=== PATIENT | female | born 1960 | race Caucasian/White ===

== ENCOUNTER 2016-09-21 12:36 | Emergency (ER) | payer MEDICARE, MEDICAID ==
[~2016-09-21] VITALS: Ht 162.6 cm; Wt 79.8 kg
[~2016-09-21 12:36] MED LIST: ABIL1TAB7 PO; AMIT24CA5 PO; BUSP15TA47 PO; BUSP1TAB PO; FLUO20CA8 PO; FLUO40CA PO; GEOD40CA2 PO; LACT20EL PO; LEVA500T PO; LISI5TAB PO; LYRI100C10 PO; LYRI75CA PO; MINI1CAP PO; MINI2CAP PO; MIRA3350 PO; MIRA33504 PO; NORT10CA2 PO; OXYB5TA PO; PAME10CA PO; PERC5TAB6 PO; PRIL40CA PO; PROZ20CA11 PO; PROZ40CA PO; TRAZ100T4 PO; ZEST1TAB6 PO; ZIPR60CA11 PO; ZONE100C4 PO; ZONI100C2 PO
[2016-09-21 13:48] LABS: BASO % 0.8 % (0.0-1.0); EOS # 0.2 K/mm3 (0.0-0.50); EOS % 2.2 % (0.0-3.0); LARGE UNSTAINED CELL # 0.1 K/mm3 (0.0-0.4); LARGE UNSTAINED CELL % 1.8 % (0.0-4.0); LYMPH # 2.2 K/mm3 (1.5-4.5); LYMPH % 30.7 % (24.0-44.0); MEAN CORPUSCULAR HEMOGLOBIN 28.4 pg (27.0-33.0); MEAN CORPUSCULAR HGB CONC 32.8 g/dl (32.0-36.5); MEAN CORPUSCULAR VOLUME 86.6 fl (80.0-96.0); MONO # 0.4 K/mm3 (0.0-0.8); MONO % 5.9 % (0.0-5.0); NEUTROPHILS # 3.9 K/mm3 (1.8-7.7); NEUTROPHILS % 58.6 % (36.0-66.0); PLATELET COUNT, AUTOMATED 182 k/mm3 (150-450); RED CELL DISTRIBUTION WIDTH 12.9 % (11.5-14.5); WHITE BLOOD COUNT 6.7 K/mm3 (4.0-10.0)
[2016-09-21 13:55] LABS: INR 1.06
[2016-09-21 14:03] LABS: ANION GAP 6 MEQ/L (8-16); BLOOD UREA NITROGEN 13 MG/DL (7-18); CALCIUM LEVEL 8.9 MG/DL (8.5-10.1); CARBON DIOXIDE LEVEL 28 MEQ/L (21-32); CHLORIDE LEVEL 109 MEQ/L (98-107); CREATININE FOR GFR 0.78 MG/DL (0.55-1.02); GLOMERULAR FILTRATION RATE > 60.0 (>51); GLUCOSE, FASTING 78 MG/DL (70-105); POTASSIUM SERUM 3.6 MEQ/L (3.5-5.1); SODIUM LEVEL 143 MEQ/L (136-145)
--- NOTE | 2016-09-21 14:18 | REP ---
CT STUDY OF THE BRAIN WITHOUT CONTRAST: HISTORY: Syncope. Comparison study October 23, 2013. 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 Bone window settings demonstrate an intact bony calvarium. Visualized paranasal sinuses are clear. The lateral, third, and fourth ventricles are normal in size and position. Stapleton-white differentiation pattern is normal above and below the tentorium. There is no evidence of intracranial hemorrhage. No extra-axial fluid collection is seen. There is no evidence of infarct mass or midline shift. IMPRESSION: Unremarkable noncontrast head CT. No acute intracranial lesion. Signed by Tommie Dang MD 09/21/2016 02:37 P
[2016-09-21 14:35] LABS: METHADONE URINE NEGATIVE (NEGATIVE)
[2016-09-21] MEDS ORDERED: KETOROLAC 30 MG/ML VIAL (J1885) IV ONE (15:15)
[2016-09-21 15:52] VITALS: BP 126/71
--- NOTE | 2016-09-22 12:29 | ECGEPIP ---
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
== END 2016-09-21 16:02 | disposition home or self-care (01) ==
LOC: EDBD 12:36 → M ED 14:22
DX: R55 Syncope and collapse (principal); S80.211A Abrasion, right knee, initial encounter; S00.11XA Contusion of right eyelid and periocular area, initial encounter; W19.XXXA Unspecified fall, initial encounter; Y92.89 Other specified places as the place of occurrence of the external cause; Y93.89 Activity, other specified; Y99.8 Other external cause status; J45.909 Unspecified asthma, uncomplicated; I10 Essential (primary) hypertension; G47.30 Sleep apnea, unspecified; R56.9 Unspecified convulsions; Z87.442 Personal history of urinary calculi; Z87.440 Personal history of urinary (tract) infections; M41.9 Scoliosis, unspecified; F41.9 Anxiety disorder, unspecified; F33.9 Major depressive disorder, recurrent, unspecified; Z79.899 Other long term (current) drug therapy; Z91.018 Allergy to other foods; Z88.2 Allergy status to sulfonamides; Z88.8 Allergy status to other drugs, medicaments and biological substances
CPT/HCPCS: 70450; 80048; 80306; 81001; 82550; 82553; 84443; 84484; 85025; 85610; 85730; 87086; 93005; 96374; 99283; G0463; J1885

== ENCOUNTER → 2016-10-28 | Outpatient (REF) | payer MEDICARE, MEDICAID | LOC: M SFHCCLAY 16:17 | PROVIDERS: ATTEND Family Medicine | DX: R30.0 Dysuria (principal) ==

== ENCOUNTER → 2017-05-12 | Outpatient (REF) | payer MEDICARE, MEDICAID ==
[~2017-05-12] MED LIST changes: -ABIL1TAB7 PO; +ABIL20TA5 PO; -AMIT24CA5 PO; +AMIT24CA7 PO; +LEVA1TAB2 PO; -LEVA500T PO; -LYRI100C10 PO; -OXYB5TA PO; +OXYB5TAB10 PO; +PERC5TAB12 PO; -PERC5TAB6 PO; +PREG100CA PO; +TRAZ-136 PO; -TRAZ100T4 PO; -ZONE100C4 PO; +ZONE1CAP PO
[2017-05-12 19:18] LABS: FOLATE 22.7 NG/ML (>5.4); VITAMIN B12 LEVEL 770 PG/ML (247-911)
[2017-05-12 19:27] LABS: ALBUMIN/GLOBULIN RATIO 1.25 (1.00-1.93); ALKALINE PHOSPHATASE 108 U/L (45-117); ALT/SGPT 38 U/L (12-78); ANION GAP 7 MEQ/L (8-16); AST/SGOT 29 U/L (7-37); BILIRUBIN,TOTAL 0.4 MG/DL (0.2-1.0); BLOOD UREA NITROGEN 9 MG/DL (7-18); CALCIUM LEVEL 9.2 MG/DL (8.5-10.1); CARBON DIOXIDE LEVEL 29 MEQ/L (21-32); CHLORIDE LEVEL 109 MEQ/L (98-107); CHOLESTEROL LEVEL 184 MG/DL (<200); CREATININE FOR GFR 0.91 MG/DL (0.55-1.02); GLOMERULAR FILTRATION RATE > 60.0 (>51); GLUCOSE, FASTING 85 MG/DL (70-105); SODIUM LEVEL 145 MEQ/L (136-145); THYROXINE (T4) 10.8 UG/DL (4.5-12.0); TOTAL PROTEIN 7.2 GM/DL (6.4-8.2); TRIGLYCERIDES LEVEL 75 MG/DL (<150)
== END ==
LOC: M SFHCCLAY 10:44
PROVIDERS: ATTEND Family Medicine
DX: E87.6 Hypokalemia (principal); E78.2 Mixed hyperlipidemia; R73.01 Impaired fasting glucose; R53.83 Other fatigue; R40.4 Transient alteration of awareness; R20.2 Paresthesia of skin; Z13.21 Encounter for screening for nutritional disorder; R20.0 Anesthesia of skin
CPT/HCPCS: 80053; 80061; 82607; 82652; 82746; 83036; 84436; 84443; G0463

== ENCOUNTER → 2017-06-30 | Outpatient (CLI) | payer MEDICARE | LOC: M PAIN 09:30 | DX: G89.29 Other chronic pain (principal); M50.122 Cervical disc disorder at C5-C6 level with radiculopathy; M50.123 Cervical disc disorder at C6-C7 level with radiculopathy; M54.5 Low back pain; M79.1 Myalgia; R56.9 Unspecified convulsions; G43.909 Migraine, unspecified, not intractable, without status migrainosus; G47.30 Sleep apnea, unspecified; F32.9 Major depressive disorder, single episode, unspecified; F41.9 Anxiety disorder, unspecified; Z79.82 Long term (current) use of aspirin; Z79.899 Other long term (current) drug therapy; Z88.1 Allergy status to other antibiotic agents | CPT/HCPCS: G0463 ==

== ENCOUNTER → 2017-08-18 | Outpatient (REF) | payer MEDICARE ==
[2017-08-18 16:33] LABS: BASO % 0.7 % (0.0-1.0); EOS # 0.1 10^3/uL (0.0-0.50); EOS % 1.2 % (0.0-3.0); HEMATOCRIT 38.5 % (36.0-47.0); HEMOGLOBIN 12.6 g/dl (12.0-16.0); IMMATURE GRANULOCYTE % 0.2 % (0-3.0); LYMPH # 1.7 10^3/uL (1.5-4.5); LYMPH % 28.4 % (24.0-44.0); MEAN CORPUSCULAR HEMOGLOBIN 27.5 pg (27.0-33.0); MEAN CORPUSCULAR HGB CONC 32.7 g/dl (32.0-36.5); MEAN CORPUSCULAR VOLUME 84.1 fl (80.0-96.0); MONO # 0.3 10^3/uL (0.0-0.8); MONO % 5.2 % (0.0-5.0); NEUTROPHILS # 3.8 10^3/uL (1.8-7.7); NEUTROPHILS % 64.3 % (36.0-66.0); PLATELET COUNT, AUTOMATED 201 10^3/uL (150-450); RED BLOOD COUNT 4.58 10^6/uL (4.00-5.40); RED CELL DISTRIBUTION WIDTH 14.2 % (11.5-14.5); WHITE BLOOD COUNT 5.9 10^3/uL (4.0-10.0)
[2017-08-18 17:03] LABS: ALBUMIN 3.7 GM/DL (3.2-5.2); ALBUMIN/GLOBULIN RATIO 1.23 (1.00-1.93); ALKALINE PHOSPHATASE 109 U/L (45-117); ALT/SGPT 40 U/L (12-78); AMYLASE 48 U/L (25-115); ANION GAP 5 MEQ/L (8-16); AST/SGOT 35 U/L (7-37); BILIRUBIN,TOTAL 0.6 MG/DL (0.2-1.0); BLOOD UREA NITROGEN 10 MG/DL (7-18); CALCIUM LEVEL 8.9 MG/DL (8.5-10.1); CARBON DIOXIDE LEVEL 28 MEQ/L (21-32); CHLORIDE LEVEL 110 MEQ/L (98-107); CREATININE FOR GFR 0.89 MG/DL (0.55-1.30); GLOMERULAR FILTRATION RATE > 60.0 (>51); GLUCOSE, FASTING 85 MG/DL (70-100); LIPASE 175 U/L (73-393); SODIUM LEVEL 143 MEQ/L (136-145); TOTAL PROTEIN 6.7 GM/DL (6.4-8.2)
[2017-08-21 12:24] LABS: HEPATITIS B SURFACE ANTIGEN NEGATIVE (NEGATIVE)
[2017-08-21 12:50] LABS: HEPATITIS C VIRUS ABY INDEX 0.1 INDEX (<0.8)
[2017-08-21 12:51] LABS: HEPATITIS B CORE ANTIBODY IGM NEGATIVE (NEGATIVE)
[2017-08-21 12:53] LABS: HEPATITIS A ANTIBODY IGM NEGATIVE (NEGATIVE)
== END ==
LOC: M SFHCCLAY 09:30
DX: R10.84 Generalized abdominal pain (principal)
CPT/HCPCS: 82150

== ENCOUNTER 2017-10-23 01:12 | Emergency (ER) | payer MEDICARE ==
[2017-10-23 01:51] LABS: BASO # 0.1 10^3/uL (0.0-0.2); BASO % 0.5 % (0.0-1.0); EOS # 0.1 10^3/uL (0.0-0.50); HEMATOCRIT 38.7 % (36.0-47.0); HEMOGLOBIN 13.2 g/dl (12.0-15.5); IMMATURE GRANULOCYTE % 0.3 % (0-3.0); LYMPH # 2.2 10^3/uL (1.5-4.5); LYMPH % 17.9 % (24.0-44.0); MEAN CORPUSCULAR HEMOGLOBIN 28.7 pg (27.0-33.0); MEAN CORPUSCULAR HGB CONC 34.1 g/dl (32.0-36.5); MEAN CORPUSCULAR VOLUME 84.1 fl (80.0-96.0); MONO # 0.6 10^3/uL (0.0-0.8); MONO % 4.9 % (0.0-5.0); NEUTROPHILS # 9.3 10^3/uL (1.8-7.7); NEUTROPHILS % 75.4 % (36.0-66.0); PLATELET COUNT, AUTOMATED 203 10^3/uL (150-450); RED CELL DISTRIBUTION WIDTH 13.4 % (11.5-14.5); WHITE BLOOD COUNT 12.3 10^3/uL (4.0-10.0)
[2017-10-23] MEDS: NS 500 ML IV (01:57)
[2017-10-23] MEDS: METOCLOPRAMIDE INJ 10MG/2ML VIAL (J2765) IV (02:03)
[2017-10-23 02:10] LABS: ALBUMIN 3.7 GM/DL (3.2-5.2); ALBUMIN/GLOBULIN RATIO 1.03 (1.00-1.93); ALKALINE PHOSPHATASE 105 U/L (45-117); ALT/SGPT 40 U/L (12-78); ANION GAP 9 MEQ/L (8-16); AST/SGOT 36 U/L (7-37); BILIRUBIN,DIRECT 0.2 MG/DL (0.0-0.2); BILIRUBIN,TOTAL 0.4 MG/DL (0.2-1.0); BLOOD UREA NITROGEN 17 MG/DL (7-18); CALCIUM LEVEL 9.4 MG/DL (8.5-10.1); CARBON DIOXIDE LEVEL 22 MEQ/L (21-32); CHLORIDE LEVEL 110 MEQ/L (98-107); CREATININE FOR GFR 1.07 MG/DL (0.55-1.30); GLOMERULAR FILTRATION RATE 56.7 (>51); GLUCOSE, FASTING 139 MG/DL (70-100); LIPASE 182 U/L (73-393); POTASSIUM SERUM 4.2 MEQ/L (3.5-5.1); SODIUM LEVEL 141 MEQ/L (136-145); TOTAL PROTEIN 7.3 GM/DL (6.4-8.2)
[2017-10-23 02:40] LABS: AMORPHOUS SEDIMENT SMALL (NEGATIVE); APPEARANCE, URINE CLOUDY (CLEAR); BACTERIA, URINE AUTO NEGATIVE (NEGATIVE); BILIRUBIN, URINE AUTO NEGATIVE (NEGATIVE); BLOOD, URINE BLOOD 1+ (NEGATIVE); COLOR, URINE YELLOW (YELLOW); GLUCOSE, URINE (UA) AUTO NEGATIVE (NEGATIVE); KETONE, URINE AUTO NEGATIVE (NEGATIVE); LEUKOCYTE ESTERASE, URINE AUTO 2+ (NEGATIVE); MUCUS, URINE SMALL (NEGATIVE); NITRITE, URINE AUTO NEGATIVE (NEGATIVE); PROTEIN, URINE AUTO NEGATIVE (NEGATIVE); RBC, URINE AUTO 25 /HPF (0-3); SPECIFIC GRAVITY URINE AUTO 1.009 (1.002-1.035); SQUAMOUS EPITHELIAL CELL UR AU 0 /HPF (0-6); UROBILINOGEN, URINE AUTO 0.2 mg/dL (0.0-2.0); WBC, URINE AUTO 7 /HPF (0-3)
[2017-10-23] MEDS: KETOROLAC 30 MG/ML VIAL (J1885) IV (02:50)
[2017-10-23] MEDS: MORPHINE 4 MG/ML 1ML VIAL/SYRINGE (J2270) IV ×3 (02:51→05:00)
[2017-10-23] MEDS: NS 1,000 ML IV (04:30)
[2017-10-23] MEDS: TAMSULOSIN 0.4 MG CAP PO (04:33)
[2017-10-23] MEDS ORDERED: MORPHINE 10 MG/ML 1ML VIAL (J2270) IV (05:15)
[2017-10-23] MEDS: NORCO 5/325MG TABLET (BULK FOR ED) PO (05:25)
== END 2017-10-23 05:34 | disposition home or self-care (01) ==
LOC: M ED 01:12
DX: N20.1 Calculus of ureter (principal); F32.9 Major depressive disorder, single episode, unspecified; Z87.442 Personal history of urinary calculi; Z79.899 Other long term (current) drug therapy; Z88.1 Allergy status to other antibiotic agents; Z91.018 Allergy to other foods
CPT/HCPCS: J2270

== ENCOUNTER → 2017-10-24 | Outpatient (CLI) | payer MEDICARE | LOC: M SMT 14:14 | DX: N13.2 Hydronephrosis with renal and ureteral calculous obstruction (principal); Z98.890 Other specified postprocedural states; M41.9 Scoliosis, unspecified | CPT/HCPCS: 71046; G0463 ==

== ENCOUNTER 2017-10-28 21:07 | Inpatient (IN) | payer MEDICARE ==
[2017-10-28 21:36] LABS: KETONE, URINE AUTO RFX NEGATIVE (NEGATIVE); NITRITE, URINE AUTO RFX NEGATIVE (NEGATIVE); RBC, URINE AUTO RFX 3 /HPF (0-3); SPECIFIC GRAVITY UR AUTO RFX 1.005 (1.002-1.035); SQUAM EPITHELIAL CELL UR AURFX 0 /HPF (0-6); WBC, URINE AUTO RFX 3 /HPF (0-3)
[2017-10-28 21:39] LABS: LEUKOCYTE ESTERASE UR AUTO RFX 1+ (NEGATIVE)
[2017-10-28] MEDS: NS 1,000 ML IV (22:00)
[2017-10-28] MEDS: ONDANSETRON 4MG/2ML VIAL (J2405) IV (22:22)
[2017-10-28] MEDS: KETOROLAC 30 MG/ML VIAL (J1885) IV (22:23)
[2017-10-28 22:26] LABS: BASO # 0.1 10^3/uL (0.0-0.2); BASO % 0.5 % (0.0-1.0); EOS # 0.1 10^3/uL (0.0-0.50); EOS % 0.8 % (0.0-3.0); HEMOGLOBIN 13.2 g/dl (12.0-15.5); IMMATURE GRANULOCYTE % 0.3 % (0-3.0); LYMPH # 1.6 10^3/uL (1.5-4.5); LYMPH % 13.1 % (24.0-44.0); MEAN CORPUSCULAR HEMOGLOBIN 28.4 pg (27.0-33.0); MEAN CORPUSCULAR HGB CONC 33.8 g/dl (32.0-36.5); MEAN CORPUSCULAR VOLUME 84.1 fl (80.0-96.0); MONO # 0.8 10^3/uL (0.0-0.8); MONO % 6.9 % (0.0-5.0); NEUTROPHILS # 9.4 10^3/uL (1.8-7.7); NEUTROPHILS % 78.4 % (36.0-66.0); PLATELET COUNT, AUTOMATED 244 10^3/uL (150-450); RED BLOOD COUNT 4.64 10^6/uL (4.00-5.40)
[2017-10-28 22:52] LABS: ANION GAP 8 MEQ/L (8-16); BLOOD UREA NITROGEN 16 MG/DL (7-18); CALCIUM LEVEL 8.8 MG/DL (8.5-10.1); CARBON DIOXIDE LEVEL 24 MEQ/L (21-32); CHLORIDE LEVEL 106 MEQ/L (98-107); CREATININE FOR GFR 1.35 MG/DL (0.55-1.30); GLOMERULAR FILTRATION RATE 43.3 (>51); GLUCOSE, FASTING 109 MG/DL (70-100); POTASSIUM SERUM 3.9 MEQ/L (3.5-5.1); SODIUM LEVEL 138 MEQ/L (136-145)
[2017-10-28] MEDS: MORPHINE 4 MG/ML 1ML VIAL/SYRINGE (J2270) IV (23:00)
[2017-10-29] MEDS ORDERED: fentaNYL 100 MCG/2 ML INJECTION (J3010) IV (00:15)
[2017-10-29] MEDS ORDERED: ACETAMINOPHEN TAB 650MG DOSE (2X325MG) PO (00:15)
[2017-10-29] MEDS ORDERED: ONDANSETRON 4MG/2ML VIAL (J2405) IV ×2 (00:15→12:45)
[2017-10-29] MEDS: MORPHINE 4 MG/ML 1ML VIAL/SYRINGE (J2270) IV (01:22)
[2017-10-29] MEDS: cefTRIAXone SOD 1 GM in D5W MINI-BAG PLUS 50 ML IV ×2 (01:22→23:55)
[2017-10-29] MEDS: TAMSULOSIN 0.4 MG CAP PO ×2 (01:22→08:08)
[2017-10-29] MEDS: NS 1,000 ML IV ×3 (02:22→17:54)
[2017-10-29] MEDS: PERCOCET 5MG/325MG TAB PO ×3 (04:14→23:56)
[2017-10-29] MEDS: HEPARIN SOD (PORCINE) 5000 UNITS/ML VIAL SC ×3 (06:00→20:54)
[2017-10-29] MEDS: MORPHINE 10 MG/ML 1ML VIAL (J2270) IV ×2 (06:21→15:43)
[2017-10-29] MEDS ORDERED: CONRAY-60 60% 50ML VIAL (Q9961) As Ordered (10:45)
[2017-10-29] MEDS ORDERED: fentaNYL 100 MCG/2 ML INJECTION (J3010) As Ordered ×2 (11:51→12:09)
[2017-10-29] MEDS ORDERED: SUGAMMADEX SODIUM 500 MG/5 ML VIAL (BRIDION) As Ordered (11:51)
[2017-10-29] MEDS ORDERED: ROCURONIUM BROMIDE 50 MG/5 ML VIAL As Ordered (11:51)
[2017-10-29] MEDS ORDERED: PROPOFOL 200 MG/20 ML VIAL As Ordered (11:51)
[2017-10-29] MEDS ORDERED: MIDAZOLAM INJ 2 MG/2 ML VIAL (J2250) As Ordered (11:51)
[2017-10-29] MEDS ORDERED: LIDOCAINE 2% INJ 100 MG/5 ML SDV (FOR ANES.) As Ordered (11:51)
[2017-10-29] MEDS ORDERED: NORCO, ANEXSIA 5/325MG TABLET (HYDROcodone/ACETAMINOPHEN) As Ordered ×2 (12:09→12:44)
[2017-10-29] MEDS ORDERED: ONDANSETRON 4MG/2ML VIAL (J2405) As Ordered (12:12)
[2017-10-29] MEDS: NORCO, ANEXSIA 5/325MG TABLET (HYDROcodone/ACETAMINOPHEN) PO ×2 (12:20→12:52)
[2017-10-29] MEDS: fentaNYL 100 MCG/2 ML INJECTION (J3010) IV ×4 (12:20→12:40)
[2017-10-29] MEDS: METOCLOPRAMIDE INJ 10MG/2ML VIAL (J2765) IV (12:20)
[2017-10-29] MEDS ORDERED: METOCLOPRAMIDE INJ 10MG/2ML VIAL (J2765) As Ordered (12:30)
[2017-10-29] MEDS ORDERED: LR 1,000 ML IV (12:45)
[2017-10-29] MEDS: FLUoxetine 20 MG CAP PO (17:59)
[2017-10-29] MEDS: ZONISAMIDE 100 MG CAP (ZONEGRAN) PO ×3 (20:45→21:00)
[2017-10-29] MEDS: busPIRone 10 MG TAB PO (20:54)
[2017-10-29] MEDS: PRAZOSIN 1 MG CAP PO (21:00)
[2017-10-30] MEDS: NS 1,000 ML IV (04:47)
[2017-10-30] MEDS: PERCOCET 5MG/325MG TAB PO (04:53)
[2017-10-30] MEDS: HEPARIN SOD (PORCINE) 5000 UNITS/ML VIAL SC (04:55)
[2017-10-30 07:18] LABS: BASO # 0.1 10^3/uL (0.0-0.2); EOS # 0.2 10^3/uL (0.0-0.50); EOS % 4.3 % (0.0-3.0); HEMATOCRIT 33.5 % (36.0-47.0); IMMATURE GRANULOCYTE % 0.4 % (0-3.0); LYMPH % 40.9 % (24.0-44.0); MEAN CORPUSCULAR HEMOGLOBIN 28.6 pg (27.0-33.0); MEAN CORPUSCULAR HGB CONC 32.8 g/dl (32.0-36.5); MONO # 0.3 10^3/uL (0.0-0.8); MONO % 6.1 % (0.0-5.0); NEUTROPHILS # 2.3 10^3/uL (1.8-7.7); NEUTROPHILS % 47.3 % (36.0-66.0); PLATELET COUNT, AUTOMATED 176 10^3/uL (150-450); RED BLOOD COUNT 3.85 10^6/uL (4.00-5.40); RED CELL DISTRIBUTION WIDTH 13.6 % (11.5-14.5); WHITE BLOOD COUNT 4.9 10^3/uL (4.0-10.0)
[2017-10-30 07:32] LABS: ANION GAP 5 MEQ/L (8-16); BLOOD UREA NITROGEN 12 MG/DL (7-18); CALCIUM LEVEL 8.6 MG/DL (8.5-10.1); CARBON DIOXIDE LEVEL 26 MEQ/L (21-32); CHLORIDE LEVEL 111 MEQ/L (98-107); CREATININE FOR GFR 0.99 MG/DL (0.55-1.30); GLOMERULAR FILTRATION RATE > 60.0 (>51); GLUCOSE, FASTING 83 MG/DL (70-100); POTASSIUM SERUM 3.6 MEQ/L (3.5-5.1); SODIUM LEVEL 142 MEQ/L (136-145)
[2017-10-30] MEDS: busPIRone 10 MG TAB PO (08:15)
[2017-10-30] MEDS: ZONISAMIDE 100 MG CAP (ZONEGRAN) PO (08:15)
[2017-10-30] MEDS: FLUoxetine 20 MG CAP PO (08:15)
== END 2017-10-30 10:50 | disposition home or self-care (01) | DRG 669 ==
LOC: M ED INP 10-29 00:11 → M PED 10-29 02:00 → M ED 21:07
PROC: 0TC68ZZ Extirpation of Matter from Right Ureter, Via Natural or Artificial Opening Endoscopic (ICD-10-PCS; principal; 2017-10-29 11:00)
DX: N13.2 Hydronephrosis with renal and ureteral calculous obstruction (principal); F41.9 Anxiety disorder, unspecified; F32.9 Major depressive disorder, single episode, unspecified; Z79.899 Other long term (current) drug therapy; Z88.2 Allergy status to sulfonamides; Z91.018 Allergy to other foods; Z86.73 Personal history of transient ischemic attack (TIA), and cerebral infarction without residual deficits; Z88.8 Allergy status to other drugs, medicaments and biological substances; G40.909 Epilepsy, unspecified, not intractable, without status epilepticus; G43.909 Migraine, unspecified, not intractable, without status migrainosus; G47.30 Sleep apnea, unspecified; I25.10 Atherosclerotic heart disease of native coronary artery without angina pectoris

== ENCOUNTER 2017-11-02 07:27 | Day surgery (SDC) | payer MEDICARE ==
[2017-11-02] MEDS: LR 1,000 ML IV (08:35)
[2017-11-02] MEDS ORDERED: fentaNYL 100 MCG/2 ML INJECTION (J3010) As Ordered (09:22)
[2017-11-02] MEDS ORDERED: MIDAZOLAM INJ 2 MG/2 ML VIAL (J2250) As Ordered (09:22)
[2017-11-02] MEDS ORDERED: LIDOCAINE 2% INJ 100 MG/5 ML SDV (FOR ANES.) As Ordered (09:22)
[2017-11-02] MEDS ORDERED: PROPOFOL 200 MG/20 ML VIAL As Ordered (09:22)
[2017-11-02] MEDS ORDERED: ePHEDrine SULFATE 25 MG/5 ML(5MG/ML) SYRINGE As Ordered (09:26)
== END 2017-11-02 11:20 | disposition home or self-care (01) ==
LOC: M SDC 07:27
DX: N20.0 Calculus of kidney (principal); J45.909 Unspecified asthma, uncomplicated; K21.9 Gastro-esophageal reflux disease without esophagitis; G47.30 Sleep apnea, unspecified; F41.9 Anxiety disorder, unspecified; F32.9 Major depressive disorder, single episode, unspecified; Z79.899 Other long term (current) drug therapy
CPT/HCPCS: 50590

== ENCOUNTER → 2017-11-23 | Outpatient (CLI) | payer MEDICARE ==
[2017-11-23 14:04] LABS: AMORPHOUS SEDIMENT SMALL (NEGATIVE); APPEARANCE, URINE CLOUDY (CLEAR); BACTERIA, URINE AUTO 1+ (NEGATIVE); BILIRUBIN, URINE AUTO NEGATIVE (NEGATIVE); BLOOD, URINE BLOOD 3+ (NEGATIVE); CALCIUM OXALATE CRYSTALS SMALL; COLOR, URINE YELLOW (YELLOW); GLUCOSE, URINE (UA) AUTO NEGATIVE (NEGATIVE); KETONE, URINE AUTO NEGATIVE (NEGATIVE); LEUKOCYTE ESTERASE, URINE AUTO 3+ (NEGATIVE); MUCUS, URINE SMALL (NEGATIVE); NITRITE, URINE AUTO NEGATIVE (NEGATIVE); PROTEIN, URINE AUTO 2+ mg/dL (NEGATIVE); RBC, URINE AUTO TNTC /HPF (0-3); SPECIFIC GRAVITY URINE AUTO 1.012 (1.002-1.035); SQUAMOUS EPITHELIAL CELL UR AU 1 /HPF (0-6); UROBILINOGEN, URINE AUTO 0.2 mg/dL (0.0-2.0); WBC, URINE AUTO 15 /HPF (0-3)
== END ==
LOC: M SMT 09:16
DX: N20.0 Calculus of kidney (principal); Z96.0 Presence of urogenital implants
CPT/HCPCS: 81001

== ENCOUNTER → 2017-11-28 | Outpatient (REF) | payer MEDICARE ==
[2017-11-28 17:18] LABS: APPEARANCE, URINE CLOUDY (CLEAR); BACTERIA, URINE AUTO 2+ (NEGATIVE); BILIRUBIN, URINE AUTO NEGATIVE (NEGATIVE); BLOOD, URINE BLOOD 3+ (NEGATIVE); CALCIUM OXALATE CRYSTALS MODERATE; COLOR, URINE YELLOW (YELLOW); GLUCOSE, URINE (UA) AUTO NEGATIVE (NEGATIVE); KETONE, URINE AUTO NEGATIVE (NEGATIVE); LEUKOCYTE ESTERASE, URINE AUTO 2+ (NEGATIVE); MUCUS, URINE SMALL (NEGATIVE); NITRITE, URINE AUTO NEGATIVE (NEGATIVE); PROTEIN, URINE AUTO 2+ mg/dL (NEGATIVE); RBC, URINE AUTO TNTC /HPF (0-3); SPECIFIC GRAVITY URINE AUTO 1.018 (1.002-1.035); SQUAMOUS EPITHELIAL CELL UR AU 1 /HPF (0-6); UROBILINOGEN, URINE AUTO 0.2 mg/dL (0.0-2.0); WBC, URINE AUTO 58 /HPF (0-3)
== END ==
LOC: M LABSMT 12:19 → M LABDRAWC 12:25
DX: N39.0 Urinary tract infection, site not specified (principal)
CPT/HCPCS: 81001

== ENCOUNTER → 2018-06-27 | Outpatient (REF) | payer MEDICARE ==
[~2018-06-27] MED LIST changes: +ASPI1TAB PO; +BUSP30TA PO; +FLOM0.4C39 PO; +GEOD40CA13 PO; -GEOD40CA2 PO; +MACR100C43 PO; +MAGN1TAB25 PO; +OXYC1TAB23 PO; +OXYCOD/APAP; +PRAZ2CAP PO; +PROZ40CA; +SUMA50TA2; +TAMSULOSIN; -TRAZ-136 PO; +TRAZ-163 PO; +VITMTA PO
[2018-06-27 18:12] LABS: BASO # 0.1 10^3/uL (0.0-0.2); EOS # 0.1 10^3/uL (0.0-0.50); EOS % 1.9 % (0.0-3.0); HEMOGLOBIN 12.7 g/dl (12.0-15.5); LYMPH # 2.3 10^3/uL (1.5-4.5); LYMPH % 33.7 % (24.0-44.0); MEAN CORPUSCULAR HEMOGLOBIN 27.8 pg (27.0-33.0); MEAN CORPUSCULAR HGB CONC 31.8 g/dl (32.0-36.5); MEAN CORPUSCULAR VOLUME 87.5 fl (80.0-96.0); MONO # 0.5 10^3/uL (0.0-0.8); MONO % 6.7 % (0.0-5.0); NEUTROPHILS # 3.9 10^3/uL (1.8-7.7); NEUTROPHILS % 56.6 % (36.0-66.0); PLATELET COUNT, AUTOMATED 210 10^3/uL (150-450); RED BLOOD COUNT 4.57 10^6/uL (4.00-5.40); WHITE BLOOD COUNT 6.9 10^3/uL (4.0-10.0)
[2018-06-27 18:21] LABS: ALBUMIN 3.7 GM/DL (3.2-5.2); ALT/SGPT 41 U/L (12-78); BILIRUBIN,DIRECT 0.1 MG/DL (0.0-0.2); BILIRUBIN,TOTAL 0.4 MG/DL (0.2-1.0); BLOOD UREA NITROGEN 16 MG/DL (7-18); CARBON DIOXIDE LEVEL 26 MEQ/L (21-32); CHLORIDE LEVEL 109 MEQ/L (98-107); CREATININE FOR GFR 0.99 MG/DL (0.55-1.30); FREE T4 0.99 NG/DL (0.76-1.46); GLOMERULAR FILTRATION RATE > 60.0 (>51); POTASSIUM SERUM 4.1 MEQ/L (3.5-5.1); SODIUM LEVEL 142 MEQ/L (136-145); THYROID STIMULATING HORMONE 0.862 uIU/ML (0.358-3.740)
[2018-06-27 18:24] LABS: FOLATE 15.3 NG/ML; VITAMIN B12 LEVEL 795 PG/ML
[2018-07-03 15:26] LABS: HOMOCYST(E)INE SERUM 11.3 umol/L (0.0-15.0)
== END ==
LOC: M LABDRAWC 16:04
PROVIDERS: ATTEND Psychiatry & Neurology Neurology
DX: R55 Syncope and collapse (principal); R20.2 Paresthesia of skin; G40.89 Other seizures

== ENCOUNTER → 2018-07-24 | Outpatient (CLI) | payer MEDICARE ==
[~2018-07-24] MED LIST changes: +PROHANCE 279.3MG/ML 15ML VIAL (A9576) As Ordered ONE; +PROHANCE 279.3MG/ML 5ML VIAL (A9576) As Ordered ONE
--- NOTE | 2018-07-24 15:56 | REP ---
MR BRAIN WITHOUT AND WITH CONTRAST: HISTORY: Syncope. CONTRAST: ProHance 16 mL. COMPARISON: CT 10/23/2013. Scattered punctate areas of increased signal intensity on T2-weighted images are present in the periventricular and subcortical white matter and marky. This presents small vessel ischemic disease. There is no intraparenchymal hemorrhage, infarct, mass or midline shift. There is no abnormal enhancement. The ventricular system and cortical sulci are dilated consistent with minimal volume loss. There is no extracerebral collection. The sinuses are clear. IMPRESSION: 1. Minimal small vessel ischemic disease. 2. Minimal volume loss. Electronically Signed by Sanket Nathan MD 07/24/2018 04:02 P
== END ==
LOC: M RAD 14:11
PROVIDERS: ATTEND Psychiatry & Neurology Neurology
DX: R55 Syncope and collapse (principal); R20.2 Paresthesia of skin; G40.89 Other seizures
CPT/HCPCS: 70553; A9576

== ENCOUNTER → 2018-09-11 | Outpatient (REF) | payer MEDICARE ==
[~2018-09-11] MED LIST changes: +LACT15SO PO; -LACT20EL PO; -PROHANCE 279.3MG/ML 15ML VIAL (A9576) As Ordered ONE; -PROHANCE 279.3MG/ML 5ML VIAL (A9576) As Ordered ONE
[2018-09-11 12:41] LABS: CHOLESTEROL RISK RATIO 3.73 (<5)
== END ==
LOC: M LABDRAWC 11:17
PROVIDERS: ATTEND Internal Medicine Cardiovascular Disease
DX: R94.31 Abnormal electrocardiogram [ECG] [EKG] (principal); I35.1 Nonrheumatic aortic (valve) insufficiency

== ENCOUNTER → 2019-01-28 | Outpatient (REF) | payer MEDICARE ==
[~2019-01-28] MED LIST changes: -ASPI1TAB PO; +ASPI81TA26 PO; -MAGN1TAB25 PO; +MAGN1TAB26 PO
[2019-01-28 12:23] LABS: ALBUMIN 3.6 GM/DL (3.2-5.2); ALT/SGPT 42 U/L (12-78); BILIRUBIN,TOTAL 0.6 MG/DL (0.2-1.0); BLOOD UREA NITROGEN 12 MG/DL (7-18); CALCIUM LEVEL 8.9 MG/DL (8.5-10.1); CARBON DIOXIDE LEVEL 27 MEQ/L (21-32); CHLORIDE LEVEL 108 MEQ/L (98-107); CREATININE FOR GFR 0.96 MG/DL (0.55-1.30); GLOMERULAR FILTRATION RATE > 60.0 (>51); GLUCOSE, FASTING 84 MG/DL (70-100); POTASSIUM SERUM 3.4 MEQ/L (3.5-5.1); SODIUM LEVEL 143 MEQ/L (136-145); THYROID STIMULATING HORMONE 0.872 uIU/ML (0.358-3.740); THYROXINE (T4) 9.5 UG/DL (4.5-12.0); TOTAL PROTEIN 6.7 GM/DL (6.4-8.2); TOTAL T3 109.8 NG/DL (60.0-181.0)
[2019-01-30 00:06] LABS: Lyme Disease IgG/IgM Antibodie <0.91 ISR (0.00-0.90); Lyme Disease IgM Ab Quantitati <0.80 index (0.00-0.79)
== END ==
LOC: M SFHCCLAY 07:54
PROVIDERS: ATTEND Family Medicine
DX: R53.83 Other fatigue (principal); M25.50 Pain in unspecified joint

== ENCOUNTER → 2019-04-15 | Outpatient (REF) | payer MEDICARE ==
[2019-04-16 11:26] LABS: APPEARANCE, URINE CLOUDY (CLEAR); BACTERIA, URINE AUTO NEGATIVE (NEGATIVE); BILIRUBIN, URINE AUTO NEGATIVE (NEGATIVE); BLOOD, URINE BLOOD 3+ (NEGATIVE); COLOR, URINE YELLOW (YELLOW); GLUCOSE, URINE (UA) AUTO NEGATIVE (NEGATIVE); KETONE, URINE AUTO NEGATIVE (NEGATIVE); LEUKOCYTE ESTERASE, URINE AUTO 1+ (NEGATIVE); MUCUS, URINE SMALL (NEGATIVE); NITRITE, URINE AUTO NEGATIVE (NEGATIVE); PROTEIN, URINE AUTO 2+ mg/dL (NEGATIVE); RBC, URINE AUTO TNTC /HPF (0-3); SPECIFIC GRAVITY URINE AUTO 1.019 (1.002-1.035); SQUAMOUS EPITHELIAL CELL UR AU 0 /HPF (0-6); UROBILINOGEN, URINE AUTO 0.2 mg/dL (0.0-2.0); WBC, URINE AUTO 4 /HPF (0-3)
== END ==
LOC: M SMT 11:08
PROVIDERS: ATTEND Urology
DX: R31.9 Hematuria, unspecified (principal)

== ENCOUNTER → 2019-04-18 | Outpatient (CLI) | payer MEDICARE ==
[2019-04-18 13:53] LABS: BLOOD UREA NITROGEN 14 MG/DL (7-18); CALCIUM LEVEL 9.2 MG/DL (8.5-10.1); CARBON DIOXIDE LEVEL 28 MEQ/L (21-32); CHLORIDE LEVEL 109 MEQ/L (98-107); CREATININE FOR GFR 0.88 MG/DL (0.55-1.30); GLOMERULAR FILTRATION RATE > 60.0 (>51); GLUCOSE, FASTING 59 MG/DL (70-100); SODIUM LEVEL 142 MEQ/L (136-145)
== END ==
LOC: M SMT 11:10
PROVIDERS: ATTEND Nurse Practitioner Family
DX: R31.0 Gross hematuria (principal)

== ENCOUNTER → 2019-04-29 | Outpatient (CLI) | payer MEDICARE ==
[~2019-04-29] MED LIST changes: +ISOVUE-370 76% 100ML VIAL (Q9967) As Ordered ONE
--- NOTE | 2019-04-29 18:11 | REP ---
CT abdomen pelvis without and with IV contrast: Without oral contrast. CT urography. History: Gross hematuria. Comparison CT study October 28, 2017. That prior study was read as showing an obstructing 8 mm stone in the right distal ureter producing obstructive uropathy and extensive bilateral nephrolithiasis. CT contrast dose: 100 ml of intravenous Isovue 370. 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 There are calcific opacities in the right mid abdomen. There are air dilated loops of transverse and splenic flexure colon on the left. Axial CT images demonstrate consolidation with air bronchograms in the left lower lobe consistent with pneumonia. The liver and the spleen are normal in size homogeneous in texture. There is an accessory splenule. Gallbladder surgically absent. No abnormalities noted in the pancreas. There is a tiny cortical cyst in the upper pole left kidney. There are multiple intrarenal calculi in the left kidney. A 2 mm calculus is seen in the upper pole. There are three adjacent calculi in the lower pole of the left kidney. The largest of these measures 6 mm. On the right there are multiple intrarenal stones as well the largest of which are in the renal pelvis. The largest renal pelvic calculus measures 16 mm in greatest diameter. There is also a 9 mm stone in the renal pelvis on the right. There is an intrarenal calculus of right mid pole measuring 10 mm in greatest diameter. There is some mild right-sided hydronephrosis and there is periureteral edema at the ureteropelvic junction. The mid and distal ureter are not dilated. There are phleboliths bilaterally. There is a 5 mm distal ureteral calculus on the left which does not appear to be causing hydronephrosis. This was not present previously. It is at the ureteral vesicle junction. No bladder stone or bladder mass is appreciated. No filling defect is seen on delayed images. The ureters describe a normal course to the urinary bladder. Small and large intestinal bowel loops are unremarkable. Moderate stool. A no uterine or ovarian abnormality. Impression: 1. Left lower lobe pneumonia noted as an incidental finding. 2. Bilateral intrarenal nephrolithiasis. 3. Hydronephrosis and peripelvic streaking, periureteral streaking, and some thickening enhancement of the renal pelvis associated with two large ureteropelvic junction stones on the right. The largest is 16 mm. 4. Nonobstructive distal ureteral calculus on the left 5 mm in size. 5. Postcholecystectomy. Electronically Signed by Tommie Dang MD 04/30/2019 08:21 A
== END ==
LOC: M RAD 15:37
PROVIDERS: ATTEND Nurse Practitioner Family
DX: J18.0 Bronchopneumonia, unspecified organism (principal); N20.2 Calculus of kidney with calculus of ureter; R31.0 Gross hematuria; Z90.49 Acquired absence of other specified parts of digestive tract
CPT/HCPCS: 74178; G0463; Q9967

== ENCOUNTER → 2019-05-24 | Outpatient (CLI) | payer MEDICARE ==
[~2019-05-24] MED LIST changes: -ISOVUE-370 76% 100ML VIAL (Q9967) As Ordered ONE
--- NOTE | 2019-05-24 17:53 | REP ---
REASON: Preoperative testing. History of nephrolithiasis. COMPARISON: 10/24/2017. FINDINGS: The superior mediastinal structures are midline. The cardiac silhouette is unremarkable in size, shape, and position. The diaphragmatic surfaces of the lungs are regular, and the costophrenic angles are clear. The pulmonary thao are clear. The imaged osseous structures are intact. IMPRESSION: There is no acute cardiopulmonary disease. Electronically Signed by Torey Bustamante DO 05/27/2019 01:13 P
--- NOTE | 2019-05-24 22:28 | ECGEPIP ---
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 Electronically Signed on 05-24-2019 22:28:20 EST by Chadwick Bell
== END ==
LOC: M RAD 15:24
PROVIDERS: ATTEND Nurse Practitioner Family
DX: Z01.818 Encounter for other preprocedural examination (principal); N20.0 Calculus of kidney

== ENCOUNTER 2019-06-14 05:51 | Day surgery (SDC) | payer MEDICARE ==
[~2019-06-14] VITALS: Ht 162.6 cm; Wt 87.1 kg
[2019-06-14] MEDS ORDERED: LR 1,000 ML IV ONE (06:00)
[2019-06-14] MEDS ORDERED: ceFAZolin SOD 2 GM in IV 1 EA IV ONE (06:00)
[2019-06-14] MEDS ORDERED: LIDOCAINE 1% MDV 20ML VIAL SQ PRN (06:00)
[2019-06-14] MEDS ORDERED: LIDOCAINE 2% INJ 100 MG/5 ML SDV (FOR ANES.) As Ordered ONE (07:12)
[2019-06-14] MEDS ORDERED: dexameTHASONE 4 MG/ML 1ML VIAL (J1100) As Ordered ONE (07:12)
[2019-06-14] MEDS ORDERED: ONDANSETRON 4MG/2ML VIAL (J2405) As Ordered ONE (07:12)
[2019-06-14] MEDS ORDERED: fentaNYL 100 MCG/2 ML INJECTION (J3010) As Ordered ONE ×2 (07:12→09:02)
[2019-06-14] MEDS ORDERED: PROPOFOL 200 MG/20 ML VIAL As Ordered ONE (07:12)
[2019-06-14] MEDS ORDERED: MIDAZOLAM INJ 2 MG/2 ML VIAL (J2250) As Ordered ONE (07:12)
[2019-06-14] MEDS ORDERED: CONRAY-60 60% 50ML VIAL (Q9961) As Ordered ONE (07:16)
[2019-06-14] MEDS ORDERED: ACETAMINOPHEN 1000MG 100ML IV BTL (OFIRMEV) (J0131 PER 10MG) As Ordered ONE (07:52)
--- NOTE | 2019-06-14 08:31 | ECGEPIP ---
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
[2019-06-14] MEDS ORDERED: ASPI81TA26 PO (09:53)
[2019-06-14] MEDS ORDERED: OYST1TAB PO (09:53)
--- NOTE | 2019-06-14 10:27 | REP ---
Retrograde pyelogram: Four views. History: Nephrolithiasis. 1 minute and 2 seconds of fluoroscopy time is reported. Findings: A sequence of four last image hold fluoroscopically obtained spot radiographs of the abdomen document bilateral ureteral cannulation, contrast injection, and stent placement. Electronically Signed by Tommie Dang MD 06/14/2019 10:18 A
[2019-06-14] MEDS: fentaNYL 100 MCG/2 ML INJECTION (J3010) IV PRN ×4 (10:35→10:50)
[2019-06-14] MEDS ORDERED: LR 1,000 ML IV SCH (11:00)
[2019-06-14] MEDS ORDERED: METOCLOPRAMIDE INJ 10MG/2ML VIAL (J2765) IV PRN (11:00)
[2019-06-14] MEDS ORDERED: ONDANSETRON 4MG/2ML VIAL (J2405) IV PRN (11:00)
[2019-06-14] MEDS: MORPHINE 2 MG/ML 1ML VIAL (J2270) IV PRN ×3 (11:05→11:25)
[2019-06-14] MEDS ORDERED: MORPHINE 10 MG/ML 1ML VIAL (J2270) As Ordered ONE (11:05)
[2019-06-14] MEDS ORDERED: PERCOCET 5MG/325MG TAB PO PRN (12:01)
[2019-06-14] MEDS ORDERED: oxyBUTYnin 5 MG TAB PO PRN (12:01)
--- NOTE | 2019-06-14 13:13 | RO ---
DATE OF PROCEDURE: 06/14/2019 PREPROCEDURE DIAGNOSIS: Bilateral kidney stones. POSTPROCEDURE DIAGNOSES: Bilateral kidney stones, right ureteral stricture. PROCEDURE: Cystoscopy, bilateral ureteroscopy with laser lithotripsy and basket extraction of stones, right ureteral balloon dilation, bilateral retrograde pyelograms with intraoperative interpretation of images, bilateral ureteral stent placement. SURGEON: Dr. Zander Yanez [employer] WORKERS: None. ANESTHESIA: General. OPERATIVE INDICATIONS: This is a 58-year-old female who was found to have bilateral nonobstructing kidney stones on recent CT scan with stones measuring up to over 1 cm on the right side and approximately 7 to 8 mm on the left. She also had a stone in the ureter on the left side. She was brought to the operating room today for treatment. DESCRIPTION OF PROCEDURE: The patient was brought to the operating room, where general anesthesia was induced. Prophylactic antibiotics were infused. She was then placed in the dorsal lithotomy position and prepped and draped in the usual sterile fashion. A rigid cystoscope was then inserted into the urethral meatus and advanced into the bladder. A guidewire was advanced up the left collecting system. Went up the left collecting system with a short semirigid ureteroscope and examined the distal to mid ureter and no stones were seen within the ureter. I then removed the short semirigid ureteroscope and then advanced the ureteral access sheath over the wire. I went over the access sheath with the flexible ureteroscope and the left kidney was thoroughly examined. Within the left kidney an approximately 7 to 8 mm stone was seen. The stone was fragmented into smaller pieces using a laser fiber. Once that was done, all the fragments were removed using a basket. Once I was satisfied that all the fragments were removed, a retrograde pyelogram was performed and was notable for mild left hydronephrosis with no extravasation. I then withdrew the ureteral access sheath along with the ureteroscope and no stones were seen within the ureter. I then utilized the wire to advance a #6 [place] x 22-32 cm JJ ureteral stent up into the left collecting system. The wire was then removed, and there were adequate curls of the stent in the left renal pelvis and in the bladder. Next, I advanced a wire up the right collecting system. I then advanced an access sheath over the wire. I went over the access sheath with a flexible ureteroscope and the right kidney was thoroughly examined. There were three stones in the right kidney, each measuring approximately 1 cm in size. All the stones were fragmented into smaller pieces using a laser fiber. Once that was done, I tried to remove the stone fragments but there was narrowing of the ureteropelvic junction that made removing the stone fragment difficult. Therefore, I had to balloon dilate the ureteropelvic junction to 15-[place] using a balloon. The balloon was inflated for about a minute each time. The balloon was then let down and removed. Once that was done, I went back in with the ureteroscope and of note the ureteropelvic junction appeared to be widely patent. I then removed all the stone fragments in the left kidney using a basket. This took a moderate amount of time and there was a moderate amount of bleeding making this fairly difficult. Once done, it did appear that I removed all the large stone fragments. At this point, a retrograde pyelogram was performed and was notable for moderate right hydronephrosis and no extravasation. I then withdrew the uteroscope along with the access sheath and no additional stones were seen within the ureter. I then utilized a wire to advance a #6-[place] x 22-32 cm JJ ureteral stent into the right collecting system. The wire was then removed, and there were adequate curls of the stent in the right renal pelvis and in the bladder. The bladder was then emptied of all fluid, and this marked the conclusion of the procedure. The patient was then taken out of the dorsal lithotomy position, awakened from anesthesia, and transported to the recovery room in stable condition. ESTIMATED BLOOD LOSS: 10 mL. COMPLICATIONS: None. SPECIMENS: Kidney stone fragments. PLAN: I will have the patient followup in the clinic in approximately 2 to 3 weeks for stent removal. Of note, I will likely get a followup renal ultrasound a few weeks after stent removal to assess for right ureteral stricture recurrence. RAHUL
[2019-06-14 14:00] VITALS: BP 137/76
== END 2019-06-14 14:10 | disposition home or self-care (01) ==
LOC: M SDC 05:51
PROVIDERS: ATTEND Urology
DX: N20.0 Calculus of kidney (principal); N13.5 Crossing vessel and stricture of ureter without hydronephrosis; K21.9 Gastro-esophageal reflux disease without esophagitis; J45.909 Unspecified asthma, uncomplicated; G43.909 Migraine, unspecified, not intractable, without status migrainosus; F41.9 Anxiety disorder, unspecified; F32.9 Major depressive disorder, single episode, unspecified; Z86.73 Personal history of transient ischemic attack (TIA), and cerebral infarction without residual deficits; Z88.2 Allergy status to sulfonamides; Z91.018 Allergy to other foods; Z88.8 Allergy status to other drugs, medicaments and biological substances; Z79.899 Other long term (current) drug therapy
CPT/HCPCS: 52341; 52356; 74420; 82360; 88300; 93005; C1769; C1894; C2617; J0131; J0690; J1100; J2250; J2270; J2405; J2765; J3010; Q9961

== ENCOUNTER → 2019-07-15 | Outpatient (CLI) | payer MEDICARE ==
[~2019-07-15] MED LIST changes: +OYST1TAB PO; -TRAZ-163 PO; +TRAZ-257 PO; +ZONI100C17 PO
--- NOTE | 2019-07-15 08:45 | REP ---
Supine abdomen two views for renal calculi: Comparison is 11/24/1927. There are bilateral ureteral stents. There was a right ureteral stent previously. There was no left ureteral stent previously. The kidneys are obscured by bowel. No renal calculi can be identified on the current study. There are surgical clips in the gallbladder fossa, unchanged. There are pelvic calcifications, unchanged, likely phleboliths. Impression: The kidneys are obscured by bowel. No renal calculi can be identified. There are bilateral ureteral stents. Electronically Signed by Octavio Segura MD 07/15/2019 08:36 A
== END ==
LOC: M CLY 08:17
PROVIDERS: ATTEND Urology
DX: N20.0 Calculus of kidney (principal)

== ENCOUNTER → 2019-08-05 | Outpatient (CLI) | payer MEDICARE ==
--- NOTE | 2019-08-05 10:20 | REP ---
Right knee five views : There is no fracture or dislocation. Mineralization and joint spaces are normal. There are no calcifications or foreign bodies. Impression: Negative right knee . Electronically Signed by Octavio Segura MD 08/05/2019 10:12 A
== END ==
LOC: M CLY 09:21
PROVIDERS: ATTEND Family Medicine
DX: M25.561 Pain in right knee (principal)

== ENCOUNTER → 2020-02-14 | Outpatient (REF) | payer MEDICARE ==
[2020-02-14 19:18] LABS: BASO # 0.1 10^3/uL (0.0-0.2); BASO % 0.9 % (0.0-1.0); EOS # 0.2 10^3/uL (0.0-0.5); EOS % 1.9 % (0.0-3.0); HEMOGLOBIN 13.2 g/dl (12.0-15.5); LYMPH # 2.2 10^3/uL (1.5-5.0); MEAN CORPUSCULAR HEMOGLOBIN 27.4 pg (27.0-33.0); MEAN CORPUSCULAR HGB CONC 31.4 g/dl (32.0-36.5); MEAN CORPUSCULAR VOLUME 87.1 fl (80.0-96.0); MONO # 0.5 10^3/uL (0.0-0.8); MONO % 6.6 % (0.0-5.0); NEUTROPHILS # 5.1 10^3/uL (1.5-8.5); NEUTROPHILS % 63.3 % (36.0-66.0); PLATELET COUNT, AUTOMATED 228 10^3/uL (150-450); RED BLOOD COUNT 4.82 10^6/uL (4.00-5.40)
[2020-02-14 19:35] LABS: ALBUMIN 3.5 GM/DL (3.2-5.2); ALT/SGPT 25 U/L (12-78); BILIRUBIN,TOTAL 0.4 MG/DL (0.2-1.0); BLOOD UREA NITROGEN 13 MG/DL (7-18); CALCIUM LEVEL 9.1 MG/DL (8.5-10.1); CARBON DIOXIDE LEVEL 29 MEQ/L (21-32); CHLORIDE LEVEL 106 MEQ/L (98-107); CHOLESTEROL LEVEL 195 MG/DL (<200); CREATININE FOR GFR 0.81 MG/DL (0.55-1.30); FREE T4 1.01 NG/DL (0.76-1.46); GLOMERULAR FILTRATION RATE > 60.0 (>51); GLUCOSE, FASTING 84 MG/DL (70-100); HDL CHOLESTEROL 39 MG/DL (>40); LDL CHOLESTEROL 132 MG/DL (<100); MAGNESIUM LEVEL 2.1 MG/DL (1.8-2.4); NON-HDL-C 156 MG/DL; POTASSIUM SERUM 4.2 MEQ/L (3.5-5.1); SODIUM LEVEL 139 MEQ/L (136-145); THYROID STIMULATING HORMONE 0.968 uIU/ML (0.358-3.740); TOTAL PROTEIN 6.9 GM/DL (6.4-8.2); TRIGLYCERIDES LEVEL 121 MG/DL (<150)
[2020-02-14 20:06] LABS: HEMOGLOBIN A1c 5.8 %
== END ==
LOC: M LABDRAWC 17:24
PROVIDERS: ATTEND Family Medicine
DX: R53.83 Other fatigue (principal); R73.01 Impaired fasting glucose; E78.2 Mixed hyperlipidemia; M25.50 Pain in unspecified joint

== ENCOUNTER 2020-11-16 12:27 | Emergency (ER) | payer MEDICARE ==
[~2020-11-16] VITALS: Ht 162.6 cm; Wt 100.0 kg
[2020-11-16] MEDS ORDERED: BUDE10.22 (12:58)
[2020-11-16] MEDS ORDERED: BACL1TAB9 (12:58)
[2020-11-16] MEDS ORDERED: ALBU8.5H (12:58)
[2020-11-16] MEDS ORDERED: ASPIRIN 81 MG CHEW TABLET PO ONE (13:45)
--- NOTE | 2020-11-16 14:12 | REP ---
INDICATION: DYSPNEA/COUGH. COMPARISON: 07/25/2018 TECHNIQUE: Portable FINDINGS: The technique utilized in obtaining the radiograph has magnified the cardiac silhouette and accentuated the interstitial markings. The superior mediastinal structures are midline. The cardiac silhouette is unremarkable in size, shape, and position. The diaphragmatic surfaces of the lungs are regular, and the costophrenic angles are clear. The pulmonary thao are clear. The imaged osseous structures are intact. IMPRESSION: There is no acute cardiopulmonary disease. <Electronically signed by Torey Bustamante > 11/16/20 [id number]
[2020-11-16 14:15] LABS: BASO # 0.1 10^3/uL (0.0-0.2); BASO % 0.7 % (0.0-1.0); EOS # 0.3 10^3/uL (0.0-0.5); EOS % 3.8 % (0.0-3.0); HEMATOCRIT 42.9 % (36.0-47.0); LYMPH # 2.8 10^3/uL (1.5-5.0); LYMPH % 30.9 % (24.0-44.0); MEAN CORPUSCULAR HEMOGLOBIN 27.2 pg (27.0-33.0); MEAN CORPUSCULAR HGB CONC 32.6 g/dl (32.0-36.5); MEAN CORPUSCULAR VOLUME 83.5 fl (80.0-96.0); MONO # 0.6 10^3/uL (0.0-0.8); MONO % 6.8 % (2.0-8.0); NEUTROPHILS # 5.2 10^3/uL (1.5-8.5); NEUTROPHILS % 57.6 % (36.0-66.0); PLATELET COUNT, AUTOMATED 230 10^3/uL (150-450); RED BLOOD COUNT 5.14 10^6/uL (4.00-5.40)
[2020-11-16 14:44] LABS: ALBUMIN 3.4 GM/DL (3.2-5.2); ALT/SGPT 25 U/L (12-78); BILIRUBIN,DIRECT 0.2 MG/DL (0.0-0.2); BILIRUBIN,TOTAL 0.5 MG/DL (0.2-1.0); BLOOD UREA NITROGEN 14 MG/DL (7-18); CALCIUM LEVEL 9.5 MG/DL (8.5-10.1); CARBON DIOXIDE LEVEL 27 MEQ/L (21-32); CHLORIDE LEVEL 105 MEQ/L (98-107); CK-MB VALUE MASS < 1.0 NG/ML (<3.6); CPK CREATINE PHOSPHOKINASE 75 U/L (26-192); CREATININE FOR GFR 0.87 MG/DL (0.55-1.30); GLOMERULAR FILTRATION RATE > 60.0 (>51); GLUCOSE, FASTING 97 MG/DL (70-100); MB/CK RELATIVE INDEX 1.33 (< OR =4); SODIUM LEVEL 140 MEQ/L (136-145); TOTAL PROTEIN 6.9 GM/DL (6.4-8.2); TROPONIN I < 0.02 NG/ML (< 0.10)
[2020-11-16 15:30] LABS: NT-PRO BNP 61 PG/ML (<125)
[2020-11-16 16:11] VITALS: BP 148/89
--- NOTE | 2020-11-17 05:29 | ECGEPIP ---
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
== END 2020-11-16 16:13 | disposition home or self-care (01) ==
LOC: M ED 12:27
DX: I49.9 Cardiac arrhythmia, unspecified (principal); J45.909 Unspecified asthma, uncomplicated; Z91.018 Allergy to other foods; Z88.1 Allergy status to other antibiotic agents; Z88.2 Allergy status to sulfonamides; Z88.8 Allergy status to other drugs, medicaments and biological substances

== ENCOUNTER → 2020-11-18 | Outpatient (REF) | payer MEDICARE ==
[~2020-11-18] MED LIST changes: +ALBU8.5H; +BACL1TAB9; +BUDE10.22
[2020-11-19 15:41] LABS: BLOOD UREA NITROGEN 16 MG/DL (7-18); CALCIUM LEVEL 9.2 MG/DL (8.5-10.1); CARBON DIOXIDE LEVEL 27 MEQ/L (21-32); CHLORIDE LEVEL 105 MEQ/L (98-107); CREATININE FOR GFR 0.96 MG/DL (0.55-1.30); GLOMERULAR FILTRATION RATE > 60.0 (>51); GLUCOSE, FASTING 89 MG/DL (70-100); MAGNESIUM LEVEL 2.3 MG/DL (1.8-2.4); NT-PRO BNP 90 PG/ML (<125); SODIUM LEVEL 140 MEQ/L (136-145)
== END ==
LOC: M LABDRAWC 11:22
PROVIDERS: ATTEND Physician Assistant
DX: I49.3 Ventricular premature depolarization (principal); R06.02 Shortness of breath

== ENCOUNTER → 2020-12-24 | Outpatient (CLI) | payer MEDICARE ==
--- NOTE | 2020-12-28 20:15 | SLEEPHOME ---
DATE: 12/24/2020 ORDERED BY: VIRA Quigley Diagnostic home sleep testing was performed due to concern for the obstructive sleep apnea syndrome in this patient with a prior history of syncope. For testing, a nocturnal T3 respiratory monitoring device was used. Continuous record was made of pulse, oxygen saturation, air flow, chest and abdominal strain, and body position. Eleven hours and 59 minutes of data were reviewed. There were 7 hours and 24 minutes marked as time in bed. During the interval marked time in bed, there were 262 respiratory events identified of 10 seconds in duration or greater for a respiratory event index of 35.3. The events were primarily obstructive, 24 mixed and central apneas were noted. Baseline pulse rate was 64. Pulse rate ranged 33 to 101. Baseline saturation was 91%. Saturations fell to 82%. Testing was performed in both the supine and nonsupine positions. IMPRESSION: Abnormal home sleep testing with repetitive respiratory events and oxygen desaturations to 82% with a respiratory event index of 35.3 is consistent with the obstructive sleep apnea syndrome. RECOMMENDATION: The patient should be encouraged to undergo a formal sleep evaluation.
== END ==
LOC: M SLEEP HO 09:55
PROVIDERS: ATTEND Physician Assistant
DX: R55 Syncope and collapse (principal)

== ENCOUNTER → 2021-01-07 | Outpatient (REF) | payer MEDICARE ==
[2021-01-08 13:00] LABS: CALCIUM LEVEL 9.4 MG/DL (8.5-10.1); CREATININE FOR GFR 1.02 MG/DL (0.55-1.30); POTASSIUM SERUM 4.8 MEQ/L (3.5-5.1)
== END ==
LOC: M LABSMT 14:20
PROVIDERS: ATTEND Urology
DX: N20.0 Calculus of kidney (principal); R31.0 Gross hematuria

== ENCOUNTER → 2021-01-14 | Outpatient (CLI) | payer MEDICARE ==
[~2021-01-14] MED LIST changes: +ISOVUE-370 76% 100ML VIAL As Ordered ONE
--- NOTE | 2021-01-14 14:11 | REP ---
INDICATION: HEMATURIA. COMPARISON: Multiple the latest 04/29/2019 TECHNIQUE: Standard helical technique after the intravenous administration of 100 cc Isovue 370. Additionally, MIP reformatted 3D images of the renal collecting systems was obtained FINDINGS: The lung bases are clear. The opacities seen previously in the left lower lobe have abated. The pre contrast enhanced portion examination shows bilateral nonobstructing nephroliths. There is no evidence of hydronephrosis or hydroureter. There is an extrarenal pelvis on the right. Multiple phleboliths are seen along the course of each distal ureter status quo. There are no urinary bladder calcifications. Hepatic and splenic densities are within normal limits. Contrast-enhanced portion examination shows a stable sub cm sized left renal cyst. There are no enhancing renal lesions. The liver, spleen, pancreas, and adrenal glands are within normal limits and unchanged. The abdominal aorta and para-aortic regions are within normal limits and unchanged. The bowel loops and the mesenteries are essentially unchanged again seen to be within normal limits. There is no free fluid or free air. There is no evidence of a mass or adenopathy. CT urogram with MIP reformatted 3D imaging shows incomplete opacification of the right ureter. There is complete opacification of the left renal collecting system. Delayed imaging through the urinary bladder shows no evidence of filling defect in the opacified portion. Bone window technique throughout the examination shows no significant change in the appearance of the osseous structures. IMPRESSION: 1. No evidence of acute intra-abdominal or intrapelvic disease. 2. Stable small left renal cyst. 3. Bilateral nonobstructing nephroliths. 4. Multiple bilateral phleboliths which appear stable. 5. Incomplete opacification of the right distal ureter. Although this is likely secondary to peristaltic activity a small intraluminal lesion could not be ruled out by this exam. 6. Other findings as described above. <Electronically signed by Torey Bustamante > 01/14/21 [id number]
== END ==
LOC: M RAD 12:53
PROVIDERS: ATTEND Urology
DX: N28.1 Cyst of kidney, acquired (principal); N20.0 Calculus of kidney; R31.0 Gross hematuria; F41.1 Generalized anxiety disorder; F43.10 Post-traumatic stress disorder, unspecified; F42.2 Mixed obsessional thoughts and acts; F60.7 Dependent personality disorder; F32.89 Other specified depressive episodes
CPT/HCPCS: 74178; 90834; Q9967

== ENCOUNTER → 2021-03-15 | Outpatient (REF) | payer MEDICARE ==
[~2021-03-15] MED LIST changes: -ISOVUE-370 76% 100ML VIAL As Ordered ONE
[2021-03-15 16:04] LABS: BASO # 0.1 10^3/uL (0.0-0.2); BASO % 0.9 % (0.0-1.0); EOS # 0.2 10^3/uL (0.0-0.5); EOS % 2.1 % (0.0-3.0); HEMATOCRIT 42.8 % (36.0-47.0); HEMOGLOBIN 13.6 g/dl (12.0-15.5); LYMPH # 2.3 10^3/uL (1.5-5.0); LYMPH % 25.4 % (24.0-44.0); MEAN CORPUSCULAR HEMOGLOBIN 26.9 pg (27.0-33.0); MEAN CORPUSCULAR HGB CONC 31.8 g/dl (32.0-36.5); MEAN CORPUSCULAR VOLUME 84.6 fl (80.0-96.0); MONO # 0.6 10^3/uL (0.0-0.8); MONO % 6.2 % (2.0-8.0); NEUTROPHILS % 65.2 % (36.0-66.0); PLATELET COUNT, AUTOMATED 241 10^3/uL (150-450); RED BLOOD COUNT 5.06 10^6/uL (4.00-5.40); WHITE BLOOD COUNT 9.2 10^3/uL (4.0-10.0)
[2021-03-15 16:35] LABS: ALBUMIN 3.5 GM/DL (3.2-5.2); ALT/SGPT 24 U/L (12-78); BILIRUBIN,TOTAL 0.6 MG/DL (0.2-1.0); BLOOD UREA NITROGEN 13 MG/DL (7-18); CALCIUM LEVEL 9.3 MG/DL (8.5-10.1); CARBON DIOXIDE LEVEL 29 MEQ/L (21-32); CHLORIDE LEVEL 109 MEQ/L (98-107); CHOLESTEROL LEVEL 193 MG/DL (<200); CHOLESTEROL RISK RATIO 4.386 (<5); CREATININE FOR GFR 0.98 MG/DL (0.55-1.30); GLOMERULAR FILTRATION RATE > 60.0 (>51); GLUCOSE, FASTING 99 MG/DL (70-100); HDL CHOLESTEROL 44 MG/DL (>40); LDL CHOLESTEROL 130 MG/DL (<100); NON-HDL-C 149 MG/DL; POTASSIUM SERUM 4.7 MEQ/L (3.5-5.1); SODIUM LEVEL 143 MEQ/L (136-145); THYROID STIMULATING HORMONE 0.709 uIU/ML (0.358-3.740); TRIGLYCERIDES LEVEL 94 MG/DL (<150)
[2021-03-15 19:30] LABS: HEMOGLOBIN A1c 5.8 %
== END ==
LOC: M SFHCCLAY 10:34
PROVIDERS: ATTEND Family Medicine
DX: R73.01 Impaired fasting glucose (principal); E78.2 Mixed hyperlipidemia; R53.83 Other fatigue; G62.9 Polyneuropathy, unspecified
CPT/HCPCS: 80053; 80061; 83036; 84443; 85025; G0463

== ENCOUNTER → 2021-04-01 | Outpatient (REF) | payer MEDICARE ==
[2021-04-01 13:28] LABS: APPEARANCE, URINE HAZY (CLEAR); BACTERIA, URINE AUTO 1+ (NEGATIVE); BILIRUBIN, URINE AUTO NEGATIVE (NEGATIVE); BLOOD, URINE BLOOD NEGATIVE (NEGATIVE); COLOR, URINE YELLOW (YELLOW); GLUCOSE, URINE (UA) AUTO NEGATIVE (NEGATIVE); KETONE, URINE AUTO NEGATIVE (NEGATIVE); LEUKOCYTE ESTERASE, URINE AUTO 3+ (NEGATIVE); NITRITE, URINE AUTO NEGATIVE (NEGATIVE); PROTEIN, URINE AUTO NEGATIVE (NEGATIVE); RBC, URINE AUTO 2 /HPF (0-3); SQUAMOUS EPITHELIAL CELL UR AU 8 /HPF (0-6); UROBILINOGEN, URINE AUTO 0.2 mg/dL (0.0-2.0); WBC, URINE AUTO 15 /HPF (0-3)
== END ==
LOC: M SMT 12:53
PROVIDERS: ATTEND Nurse Practitioner Women's Health
DX: N39.46 Mixed incontinence (principal)
CPT/HCPCS: 51798; 81001; 87086; G0463

== ENCOUNTER → 2021-04-06 | Outpatient (CLI) | payer MEDICARE ==
--- NOTE | 2021-04-07 17:08 | SLEEPCENT ---
DATE: 04/06/2021 ORDERED BY: VIRA Underwood Nocturnal polysomnography was performed for the titration of pressure therapy in this patient with a clinical diagnosis of obstructive sleep apnea syndrome supported by home testing revealing a respiratory event index of 35.3. For testing a ResMed AirFit F20 full face mask of small size was used, 4 cm of water pressure were applied to the circuit, and the lights were extinguished. Seven hours and 22 minutes of data were reviewed. There were 357.5 minutes of sleep identified. Sleep latency was short at 4.5 minutes. REM latency was normal at 91.5 minutes. Sleep architecture improved with optimal pressure therapy. There were two REM cycles noted. Overall sleep efficiency was 84.7%. The electrocardiogram showed a sinus rhythm with frequent PVCs. Average heart rate was 60 beats per minute. EEG showed fairly normal waveforms for wake and sleep stages. Respiratory events were fully palliated with CPAP at a pressure of 10. There was some scattered limb activity in the EMG leads. Limb movement arousal index on this occasion was 8.9. IMPRESSIONS: Obstructive sleep apnea syndrome (G47.33). RECOMMENDATION: Nightly use of pressure therapy 10 cm of water. cc: VIRA Quigley
== END ==
LOC: M SLEEP 20:00
PROVIDERS: ATTEND Physician Assistant
DX: G47.33 Obstructive sleep apnea (adult) (pediatric) (principal)

== ENCOUNTER → 2021-08-10 | Outpatient (CLI) | payer MEDICARE | LOC: M CLY 09:39 | PROVIDERS: ATTEND Physician Assistant | DX: R10.9 Unspecified abdominal pain (principal); Z90.49 Acquired absence of other specified parts of digestive tract ==

== ENCOUNTER → 2021-08-10 | Outpatient (REF) | payer MEDICARE | LOC: M SFHCCLAY 09:31 | PROVIDERS: ATTEND Physician Assistant | DX: R10.9 Unspecified abdominal pain (principal) ==

== ENCOUNTER → 2021-08-17 | Outpatient (CLI) | payer MEDICARE ==
[~2021-08-17] MED LIST changes: +BARIUM SULFATE 700 MG TABLET (E-Z-DISK) As Ordered ONE; +E-Z-PAQUE 96% w/w SUSP 176GM BTL As Ordered ONE; +VARIBAR NECTAR 40% w/v 240ML SUSP BTL As Ordered ONE; +VARIBAR PUDDING 40% w/v 230ML TUBE As Ordered ONE
== END ==
LOC: M RAD 10:49
PROVIDERS: ATTEND Family Medicine
DX: R13.10 Dysphagia, unspecified (principal)

== ENCOUNTER → 2021-09-01 | Outpatient (CLI) | payer MEDICARE ==
[~2021-09-01] MED LIST changes: -BARIUM SULFATE 700 MG TABLET (E-Z-DISK) As Ordered ONE; -E-Z-PAQUE 96% w/w SUSP 176GM BTL As Ordered ONE; -VARIBAR NECTAR 40% w/v 240ML SUSP BTL As Ordered ONE; -VARIBAR PUDDING 40% w/v 230ML TUBE As Ordered ONE
== END ==
LOC: M RAD 07:38
PROVIDERS: ATTEND Family Medicine
DX: G40.909 Epilepsy, unspecified, not intractable, without status epilepticus (principal); R40.4 Transient alteration of awareness; R40.20 Unspecified coma

== ENCOUNTER → 2021-09-29 | Outpatient (CLI) | payer MEDICARE | LOC: M CLY 14:25 | PROVIDERS: ATTEND Physician Assistant | DX: R06.02 Shortness of breath (principal) ==

== ENCOUNTER → 2021-09-29 | Outpatient (REF) | payer MEDICARE ==
[2021-09-30 11:32] LABS: HEMATOCRIT 42.7 % (36.0-47.0); HEMOGLOBIN 13.9 g/dl (12.0-15.5); MEAN CORPUSCULAR HEMOGLOBIN 27.6 pg (27.0-33.0); MEAN CORPUSCULAR HGB CONC 32.6 g/dl (32.0-36.5); MEAN CORPUSCULAR VOLUME 84.9 fl (80.0-96.0); PLATELET COUNT, AUTOMATED 240 10^3/uL (150-450); RED BLOOD COUNT 5.03 10^6/uL (4.00-5.40); WHITE BLOOD COUNT 9.2 10^3/uL (4.0-10.0)
[2021-09-30 12:10] LABS: ALBUMIN 3.8 GM/DL (3.2-5.2); ALT/SGPT 31 U/L (12-78); BILIRUBIN,TOTAL 0.5 MG/DL (0.2-1.0); BLOOD UREA NITROGEN 14 MG/DL (7-18); CALCIUM LEVEL 9.7 MG/DL (8.5-10.1); CARBON DIOXIDE LEVEL 32 MEQ/L (21-32); CHLORIDE LEVEL 106 MEQ/L (98-107); CREATININE FOR GFR 0.98 MG/DL (0.55-1.30); FREE T4 1.05 NG/DL (0.76-1.46); GLOMERULAR FILTRATION RATE > 60.0 (>51); GLUCOSE, FASTING 79 MG/DL (70-100); MAGNESIUM LEVEL 2.3 MG/DL (1.8-2.4); NT-PRO BNP 78 PG/ML (<125); POTASSIUM SERUM 5.5 MEQ/L (3.5-5.1); SODIUM LEVEL 139 MEQ/L (136-145); TOTAL PROTEIN 7.3 GM/DL (6.4-8.2)
== END ==
LOC: M LABDRAWC 11:16
PROVIDERS: ATTEND Physician Assistant
DX: R00.2 Palpitations (principal); R06.02 Shortness of breath

== ENCOUNTER → 2021-10-04 | Outpatient (REF) | payer MEDICARE | LOC: M LABDRAWC 15:46 | PROVIDERS: ATTEND Physician Assistant | DX: I49.3 Ventricular premature depolarization (principal) ==

== ENCOUNTER → 2021-12-10 | Outpatient (REF) | payer MEDICARE ==
[~2021-12-10] MED LIST changes: -ZONI100C17 PO; +ZONI100C67 PO
[2021-12-10 13:48] LABS: APPEARANCE, URINE CLEAR (CLEAR); BACTERIA, URINE AUTO 1+ (NEGATIVE); BILIRUBIN, URINE AUTO NEGATIVE (NEGATIVE); BLOOD, URINE BLOOD NEGATIVE (NEGATIVE); COLOR, URINE YELLOW (YELLOW); GLUCOSE, URINE (UA) AUTO NEGATIVE (NEGATIVE); KETONE, URINE AUTO NEGATIVE (NEGATIVE); LEUKOCYTE ESTERASE, URINE AUTO 3+ (NEGATIVE); NITRITE, URINE AUTO NEGATIVE (NEGATIVE); PROTEIN, URINE AUTO NEGATIVE (NEGATIVE); RBC, URINE AUTO 7 /HPF (0-3); SPECIFIC GRAVITY URINE AUTO 1.012 (1.002-1.035); SQUAMOUS EPITHELIAL CELL UR AU 1 /HPF (0-6); UROBILINOGEN, URINE AUTO 0.2 mg/dL (0.0-2.0); WBC, URINE AUTO 10 /HPF (0-3)
== END ==
LOC: M SMT 13:26
PROVIDERS: ATTEND Urology
DX: N39.0 Urinary tract infection, site not specified (principal)

== ENCOUNTER → 2021-12-15 | Outpatient (CLI) | payer MEDICARE | LOC: M PLAIMG 08:34 | PROVIDERS: ATTEND Urology | DX: N20.0 Calculus of kidney (principal) ==

== ENCOUNTER → 2021-12-27 | Outpatient (REF) | payer MEDICARE ==
[~2021-12-27] MED LIST changes: +DILT60CASR; +OXYB15TA14
[2021-12-27 16:18] LABS: APPEARANCE, URINE CLEAR (CLEAR); BACTERIA, URINE AUTO NEGATIVE (NEGATIVE); BILIRUBIN, URINE AUTO NEGATIVE (NEGATIVE); BLOOD, URINE BLOOD NEGATIVE (NEGATIVE); COLOR, URINE YELLOW (YELLOW); GLUCOSE, URINE (UA) AUTO NEGATIVE (NEGATIVE); KETONE, URINE AUTO NEGATIVE (NEGATIVE); LEUKOCYTE ESTERASE, URINE AUTO 1+ (NEGATIVE); NITRITE, URINE AUTO NEGATIVE (NEGATIVE); PROTEIN, URINE AUTO NEGATIVE (NEGATIVE); RBC, URINE AUTO 4 /HPF (0-3); SPECIFIC GRAVITY URINE AUTO 1.012 (1.002-1.035); SQUAMOUS EPITHELIAL CELL UR AU 1 /HPF (0-6); UROBILINOGEN, URINE AUTO 0.2 mg/dL (0.0-2.0); WBC, URINE AUTO 5 /HPF (0-3)
== END ==
LOC: M LABSMT 13:13
PROVIDERS: ATTEND Urology
DX: N39.0 Urinary tract infection, site not specified (principal)

== ENCOUNTER 2021-12-29 08:43 | Day surgery (SDC) | payer MEDICARE ==
[~2021-12-29] VITALS: Ht 162.6 cm; Wt 103.3 kg
[~2021-12-29 08:43] MED LIST changes: +ceFAZolin SOD 2 GM in IV 1 EA IV ONE
[2021-12-29] MEDS ORDERED: LR 1,000 ML IV SCH (09:10)
[2021-12-29] MEDS ORDERED: BOTOX THERAPEUTIC 100 UNIT VIAL (J0585 PER 1 UNIT) As Ordered ONE (09:25)
[2021-12-29] MEDS ORDERED: LIDOCAINE 2% 5ML JELLY UROJET As Ordered ONE (09:25)
[2021-12-29] MEDS ORDERED: fentaNYL 100 MCG/2 ML INJECTION As Ordered ONE (09:52)
[2021-12-29] MEDS ORDERED: MIDAZOLAM INJ 2MG/2ML VIAL (J2250 PER 1MG) As Ordered ONE (09:52)
[2021-12-29] MEDS ORDERED: propofoL 200 MG/20 ML VIAL As Ordered ONE (09:52)
[2021-12-29 11:00] VITALS: BP 160/79
== END 2021-12-29 11:27 | disposition home or self-care (01) ==
LOC: M SDC 08:43
PROVIDERS: ATTEND Urology
DX: N32.81 Overactive bladder (principal); N39.41 Urge incontinence; I10 Essential (primary) hypertension; K21.9 Gastro-esophageal reflux disease without esophagitis; F41.9 Anxiety disorder, unspecified; F32.A Depression, unspecified; G40.909 Epilepsy, unspecified, not intractable, without status epilepticus; Z86.73 Personal history of transient ischemic attack (TIA), and cerebral infarction without residual deficits; J45.909 Unspecified asthma, uncomplicated; Z79.82 Long term (current) use of aspirin; Z79.51 Long term (current) use of inhaled steroids; Z88.2 Allergy status to sulfonamides; Z91.018 Allergy to other foods
CPT/HCPCS: 52287; J0585; J0690; J2250; J3010

== ENCOUNTER → 2022-01-14 | Outpatient (REF) | payer MEDICARE ==
[~2022-01-14] MED LIST changes: -ceFAZolin SOD 2 GM in IV 1 EA IV ONE
[2022-01-14 13:58] LABS: APPEARANCE, URINE CLEAR (CLEAR); BACTERIA, URINE AUTO NEGATIVE (NEGATIVE); BILIRUBIN, URINE AUTO NEGATIVE (NEGATIVE); BLOOD, URINE BLOOD 1+ (NEGATIVE); COLOR, URINE YELLOW (YELLOW); GLUCOSE, URINE (UA) AUTO NEGATIVE (NEGATIVE); KETONE, URINE AUTO NEGATIVE (NEGATIVE); LEUKOCYTE ESTERASE, URINE AUTO TRACE (NEGATIVE); NITRITE, URINE AUTO NEGATIVE (NEGATIVE); PROTEIN, URINE AUTO NEGATIVE (NEGATIVE); RBC, URINE AUTO 5 /HPF (0-3); SQUAMOUS EPITHELIAL CELL UR AU 0 /HPF (0-6); UROBILINOGEN, URINE AUTO 0.2 mg/dL (0.0-2.0); WBC, URINE AUTO 5 /HPF (0-3)
== END ==
LOC: M SMT 12:50
PROVIDERS: ATTEND Nurse Practitioner Women's Health
DX: R39.89 Other symptoms and signs involving the genitourinary system (principal)

== ENCOUNTER → 2022-04-13 | Outpatient (REF) | payer MEDICARE ==
[2022-04-13 18:47] LABS: APPEARANCE, URINE MANUAL CLEAR (CLEAR); COLOR, URINE MANUAL LT YELLOW (YELLOW)
[2022-04-13 18:48] LABS: BILIRUBIN, URINE MANUAL NEGATIVE (NEGATIVE); BLOOD URINE MANUAL POSITIVE (NEGATIVE); GLUCOSE, URINE (UA) MANUAL NEGATIVE (NEGATIVE); KETONE, URINE MANUAL NEGATIVE (NEGATIVE); LEUKOCYTE ESTERASE, URINE MAN POSITIVE (NEGATIVE); NITRITE, URINE MANUAL NEGATIVE (NEGATIVE); PROTEIN, URINE MANUAL NEGATIVE (NEGATIVE); UROBILINOGEN, URINE MANUAL NORMAL (NORMAL)
[2022-04-13 19:43] LABS: BACTERIA, URINE SMALL AMOUNT; SQUAMOUS EPITHELIAL CELL URINE SMALL AMOUNT /hpf (SMALL AMT)
[2022-04-13 19:44] LABS: HYALINE CAST, URINE NONE SEEN /lpf (0-1); RBC, URINE 0-1 /hpf (0-3); TRANSITIONAL EPI CELLS, URINE SMALL AMOUNT /hpf
== END ==
LOC: M LABSMT 10:05
PROVIDERS: ATTEND Urology
DX: N39.0 Urinary tract infection, site not specified (principal)

== ENCOUNTER → 2022-04-13 | Outpatient (CLI) | payer MEDICARE | LOC: M CLY 10:10 | PROVIDERS: ATTEND Urology | DX: N20.0 Calculus of kidney (principal) ==

== ENCOUNTER → 2022-04-21 | Outpatient (CLI) | payer MEDICARE ==
[~2022-04-21] MED LIST changes: +METHACHOLINE KIT (J7674) INH ONE
== END ==
LOC: M CARPUL 08:44
PROVIDERS: ATTEND Physician Assistant
DX: R06.00 Dyspnea, unspecified (principal)
CPT/HCPCS: 94070; 95070; J7674

== ENCOUNTER → 2022-05-02 | Outpatient (REF) | payer MEDICARE ==
[~2022-05-02] MED LIST changes: -METHACHOLINE KIT (J7674) INH ONE
[2022-05-02 18:07] LABS: BASO # 0.1 10^3/uL (0.0-0.2); BASO % 0.7 % (0.0-1.0); EOS # 0.1 10^3/uL (0.0-0.5); EOS % 1.9 % (0.0-3.0); HEMATOCRIT 40.6 % (36.0-47.0); HEMOGLOBIN 12.7 g/dl (12.0-15.5); MEAN CORPUSCULAR HEMOGLOBIN 27.7 pg (27.0-33.0); MEAN CORPUSCULAR HGB CONC 31.3 g/dl (32.0-36.5); MEAN CORPUSCULAR VOLUME 88.5 fl (80.0-96.0); MONO # 0.6 10^3/uL (0.0-0.8); MONO % 7.6 % (2.0-8.0); NEUTROPHILS # 4.4 10^3/uL (1.5-8.5); NEUTROPHILS % 61.5 % (36.0-66.0); PLATELET COUNT, AUTOMATED 238 10^3/uL (150-450); RED BLOOD COUNT 4.59 10^6/uL (4.00-5.40); WHITE BLOOD COUNT 7.2 10^3/uL (4.0-10.0)
[2022-05-02 18:47] LABS: ALT/SGPT 31 U/L (7.0-40); BILIRUBIN,TOTAL 0.3 MG/DL (0.3-1.2); BLOOD UREA NITROGEN 15 MG/DL (9-23); CALCIUM LEVEL 9.2 MG/DL (8.3-10.6); CARBON DIOXIDE LEVEL 28 MMOL/L (20-31); CHLORIDE LEVEL 103 MMOL/L (98-107); CHOLESTEROL LEVEL 174 MG/DL (<200); CHOLESTEROL RISK RATIO 4.16 (<5); CREATININE FOR GFR 0.89 MG/DL (0.55-1.30); GLOMERULAR FILTRATION RATE > 60.0 (>45); GLUCOSE, FASTING 101 MG/DL (74-106); HDL CHOLESTEROL 41.8 MG/DL (>40); LDL CHOLESTEROL 109.6 MG/DL (<100); NON-HDL-C 132 MG/DL; POTASSIUM SERUM 4.4 MMOL/L (3.5-5.1); SODIUM LEVEL 140 MMOL/L (136-145); TOTAL PROTEIN 6.8 G/DL (5.7-8.2); TRIGLYCERIDES LEVEL 113 MG/DL (<150)
[2022-05-02 19:12] LABS: ALBUMIN 3.8 G/DL (3.2-5.2)
[2022-05-02 19:57] LABS: HEMOGLOBIN A1c 5.7 % (4.0-6.0)
== END ==
LOC: M SFHCCLAY 10:28
PROVIDERS: ATTEND Family Medicine
DX: R73.01 Impaired fasting glucose (principal); E78.2 Mixed hyperlipidemia

== ENCOUNTER → 2022-11-09 | Outpatient (REF) | payer MEDICARE ==
[2022-11-10 18:08] LABS: BASO # 0.1 10^3/uL (0.0-0.2); BASO % 0.7 % (0.0-1.0); EOS # 0.1 10^3/uL (0.0-0.5); EOS % 1.2 % (0.0-3.0); HEMATOCRIT 40.5 % (36.0-47.0); HEMOGLOBIN 12.8 g/dl (12.0-15.5); LYMPH # 2.2 10^3/uL (1.5-5.0); LYMPH % 29.9 % (24.0-44.0); MEAN CORPUSCULAR HEMOGLOBIN 27.5 pg (27.0-33.0); MEAN CORPUSCULAR HGB CONC 31.6 g/dl (32.0-36.5); MEAN CORPUSCULAR VOLUME 86.9 fl (80.0-96.0); MONO # 0.5 10^3/uL (0.0-0.8); MONO % 7.5 % (2.0-8.0); NEUTROPHILS # 4.4 10^3/uL (1.5-8.5); NEUTROPHILS % 60.6 % (36.0-66.0); PLATELET COUNT, AUTOMATED 252 10^3/uL (150-450); RED BLOOD COUNT 4.66 10^6/uL (4.00-5.40); WHITE BLOOD COUNT 7.2 10^3/uL (4.0-10.0)
[2022-11-10 18:33] LABS: LIPASE 24 U/L (12-53)
[2022-11-10 18:34] LABS: AMYLASE 39 U/L (30-118)
[2022-11-10 18:35] LABS: ALBUMIN 3.9 G/DL (3.2-5.2); ALKALINE PHOSPHATASE 91 U/L (46-116); ALT/SGPT 31 U/L (7.0-40); AST/SGOT 22 U/L (<34); BILIRUBIN,TOTAL 0.9 MG/DL (0.3-1.2); BLOOD UREA NITROGEN 11 MG/DL (9-23); CALCIUM LEVEL 9.4 MG/DL (8.3-10.6); CARBON DIOXIDE LEVEL 25 MMOL/L (20-31); CHLORIDE LEVEL 103 MMOL/L (98-107); CREATININE FOR GFR 0.83 MG/DL (0.55-1.30); GLOMERULAR FILTRATION RATE > 60.0 (>45); GLUCOSE, FASTING 93 MG/DL (74-106); POTASSIUM SERUM 4.3 MMOL/L (3.5-5.1); SODIUM LEVEL 137 MMOL/L (136-145)
== END ==
LOC: M SFHCCAPE 15:06
PROVIDERS: ATTEND Physician Assistant
DX: R10.84 Generalized abdominal pain (principal)

== ENCOUNTER → 2022-11-10 | Outpatient (CLI) | payer MEDICARE | LOC: M CLY 09:25 | PROVIDERS: ATTEND Physician Assistant | DX: R10.84 Generalized abdominal pain (principal); R05.9 Cough, unspecified; M47.816 Spondylosis without myelopathy or radiculopathy, lumbar region ==

== ENCOUNTER → 2022-12-01 | Outpatient (REF) | payer MEDICARE ==
[~2022-12-01] MED LIST changes: -DILT60CASR; +DILT60CASR PO
== END ==
LOC: M SFHCCLAY 08:58
PROVIDERS: ATTEND Family Medicine
DX: Z01.818 Encounter for other preprocedural examination (principal); N20.0 Calculus of kidney

== ENCOUNTER 2022-12-07 08:03 | Day surgery (SDC) | payer MEDICARE ==
[~2022-12-07] VITALS: Ht 162.6 cm; Wt 94.8 kg
[~2022-12-07 08:03] MED LIST changes: +ACETAMINOPHEN 1000MG 100ML IV BAG As Ordered ONE; +KETOROLAC 60MG 2ML VIAL As Ordered ONE; +LIDOCAINE 2% 100MG/5ML SDV (FOR ANES.) As Ordered ONE; +MIDAZOLAM INJ 2MG/2ML VIAL As Ordered ONE; +ONDANSETRON 4MG 2ML VIAL As Ordered ONE; +ceFAZolin SOD 2 GM in IV 1 EA IV ONE; +fentaNYL 100 MCG/2 ML INJECTION As Ordered ONE; +propofoL 200 MG/20 ML VIAL As Ordered ONE
[2022-12-07] MEDS ORDERED: LR 1,000 ML IV SCH ×2 (08:25→12:00)
[2022-12-07] MEDS ORDERED: ONDA8TAB8 (08:38)
[2022-12-07] MEDS ORDERED: LEVOTAB10 (08:38)
[2022-12-07] MEDS ORDERED: NITR0.4S14 (08:38)
[2022-12-07] MEDS ORDERED: CEPH250T (08:38)
[2022-12-07] MEDS ORDERED: FLUT50SP17 (08:38)
[2022-12-07] MEDS ORDERED: ADV500INH (08:38)
[2022-12-07] MEDS ORDERED: HYDR-3713 (08:38)
[2022-12-07] MEDS ORDERED: ISOVUE-300 61% 100ML VIAL As Ordered ONE (10:00)
[2022-12-07] MEDS ORDERED: fentaNYL 100 MCG/2 ML INJECTION As Ordered ONE (11:37)
[2022-12-07] MEDS ORDERED: ONDANSETRON 4MG 2ML VIAL IV PRN (12:00)
[2022-12-07] MEDS ORDERED: HYDROMORPHONE HCL 0.5 MG/ 0.5 ML SYRINGE IV PRN (12:00)
[2022-12-07] MEDS ORDERED: fentaNYL 100 MCG/2 ML INJECTION IV PRN (12:00)
[2022-12-07] MEDS ORDERED: oxyCODONE 5MG TAB PO PRN (12:00)
[2022-12-07] MEDS ORDERED: PERCOCET 5MG/325MG TAB PO PRN (12:05)
[2022-12-07] MEDS ORDERED: OXYB5TAB10 PO (12:41)
[2022-12-07 14:45] VITALS: BP 134/82; TEMP 97.5; O2SAT 96
[2022-12-16 01:09] LABS: CA Oxalate Dihy 30 % (.); Ca Ox Monohydrate 70 % (.)
== END 2022-12-07 14:52 | disposition home or self-care (01) ==
LOC: M SDC 08:03
PROVIDERS: ATTEND Urology
DX: N20.0 Calculus of kidney (principal); N13.1 Hydronephrosis with ureteral stricture, not elsewhere classified; K21.9 Gastro-esophageal reflux disease without esophagitis; R00.2 Palpitations; Z98.890 Other specified postprocedural states; R06.02 Shortness of breath; M19.90 Unspecified osteoarthritis, unspecified site; F32.A Depression, unspecified; F41.9 Anxiety disorder, unspecified; F44.9 Dissociative and conversion disorder, unspecified; Z86.73 Personal history of transient ischemic attack (TIA), and cerebral infarction without residual deficits; M54.9 Dorsalgia, unspecified; M54.2 Cervicalgia; G47.30 Sleep apnea, unspecified; R32 Unspecified urinary incontinence; J45.909 Unspecified asthma, uncomplicated; Z87.442 Personal history of urinary calculi; Z88.2 Allergy status to sulfonamides; Z91.018 Allergy to other foods; Z79.899 Other long term (current) drug therapy; Z79.82 Long term (current) use of aspirin; Z79.891 Long term (current) use of opiate analgesic; Z79.51 Long term (current) use of inhaled steroids
CPT/HCPCS: 52345; 52356; 74420; 82365; C1769; C1894; C2617; J0131; J0690; J1100; J1885; J2250; J2405; J3010; Q9967

== ENCOUNTER → 2023-02-22 | Outpatient (CLI) | payer MEDICARE ==
[~2023-02-22] MED LIST changes: -ACETAMINOPHEN 1000MG 100ML IV BAG As Ordered ONE; +ADV500INH; +CEPH250T; +FLUT50SP17; +HYDR-3713; -KETOROLAC 60MG 2ML VIAL As Ordered ONE; +LEVOTAB10; -LIDOCAINE 2% 100MG/5ML SDV (FOR ANES.) As Ordered ONE; -MIDAZOLAM INJ 2MG/2ML VIAL As Ordered ONE; +NITR0.4S14; +ONDA8TAB8; -ONDANSETRON 4MG 2ML VIAL As Ordered ONE; -ceFAZolin SOD 2 GM in IV 1 EA IV ONE; -fentaNYL 100 MCG/2 ML INJECTION As Ordered ONE; -propofoL 200 MG/20 ML VIAL As Ordered ONE
== END ==
LOC: M RAD 09:06
PROVIDERS: ATTEND Urology
DX: N13.5 Crossing vessel and stricture of ureter without hydronephrosis (principal)

== ENCOUNTER → 2023-05-12 | Outpatient (REF) | payer MEDICARE ==
[~2023-05-12] MED LIST changes: -OXYB5TAB10 PO; +OXYB5TAB11 PO
[2023-05-12 18:29] LABS: APPEARANCE, URINE CLEAR (CLEAR); BACTERIA, URINE AUTO NEGATIVE (NEGATIVE); BILIRUBIN, URINE AUTO NEGATIVE (NEGATIVE); BLOOD, URINE BLOOD NEGATIVE (NEGATIVE); COLOR, URINE YELLOW (YELLOW); GLUCOSE, URINE (UA) AUTO NEGATIVE (NEGATIVE); KETONE, URINE AUTO NEGATIVE (NEGATIVE); LEUKOCYTE ESTERASE, URINE AUTO 1+ (NEGATIVE); MUCUS, URINE SMALL (NEGATIVE); NITRITE, URINE AUTO NEGATIVE (NEGATIVE); PROTEIN, URINE AUTO NEGATIVE (NEGATIVE); RBC, URINE AUTO 4 /HPF (0-3); SPECIFIC GRAVITY URINE AUTO 1.017 (1.002-1.035); SQUAMOUS EPITHELIAL CELL UR AU 1 /HPF (0-6); UROBILINOGEN, URINE AUTO 0.2 mg/dL (0.0-2.0); WBC, URINE AUTO 12 /HPF (0-3)
== END ==
LOC: M SFHCCLAY 17:03
PROVIDERS: ATTEND Family Medicine
DX: Z87.442 Personal history of urinary calculi (principal); Z79.899 Other long term (current) drug therapy

== ENCOUNTER → 2023-08-14 | Outpatient (CLI) | payer MEDICARE ==
[~2023-08-14] MED LIST changes: -FLUT50SP17; +FLUTISP; -OXYB5TAB11 PO; +OXYB5TAB14 PO
== END ==
LOC: M CLY 09:15
PROVIDERS: ATTEND Urology
DX: N20.0 Calculus of kidney (principal)

== ENCOUNTER → 2023-09-26 | Outpatient (REF) | payer MEDICARE ==
[2023-09-26 12:35] LABS: APPEARANCE, URINE CLEAR (CLEAR); BACTERIA, URINE AUTO NEGATIVE (NEGATIVE); BILIRUBIN, URINE AUTO NEGATIVE (NEGATIVE); BLOOD, URINE BLOOD NEGATIVE (NEGATIVE); COLOR, URINE YELLOW (YELLOW); GLUCOSE, URINE (UA) AUTO NEGATIVE (NEGATIVE); KETONE, URINE AUTO NEGATIVE (NEGATIVE); LEUKOCYTE ESTERASE, URINE AUTO TRACE (NEGATIVE); NITRITE, URINE AUTO NEGATIVE (NEGATIVE); PROTEIN, URINE AUTO NEGATIVE (NEGATIVE); RBC, URINE AUTO 0 /HPF (0-3); SPECIFIC GRAVITY URINE AUTO 1.017 (1.002-1.035); SQUAMOUS EPITHELIAL CELL UR AU 1 /HPF (0-6); UROBILINOGEN, URINE AUTO 0.2 mg/dL (0.0-2.0); WBC, URINE AUTO 3 /HPF (0-3)
== END ==
LOC: M LABSMT 08:39
PROVIDERS: ATTEND Physician Assistant
DX: R30.0 Dysuria (principal)

== ENCOUNTER → 2023-10-02 | Outpatient (REF) | payer MEDICARE ==
[~2023-10-02] MED LIST changes: -ALBU8.5H; +ALBU8.5H INH; +FLUT1BLS6 INH; -NITR0.4S14; +NITR0.4S14 SL; +ONDA-83 PO; +OXYC7.5T3 PO; +RA N1TAB PO; +TAMS1CAP17 PO; +THERTAB52 PO
[2023-10-02 12:16] LABS: HEMATOCRIT 40.4 % (36.0-47.0); HEMOGLOBIN 13.3 g/dl (12.0-15.5); MEAN CORPUSCULAR HEMOGLOBIN 28.4 pg (27.0-33.0); MEAN CORPUSCULAR HGB CONC 32.9 g/dl (32.0-36.5); MEAN CORPUSCULAR VOLUME 86.1 fl (80.0-96.0); PLATELET COUNT, AUTOMATED 237 10^3/uL (150-450); RED BLOOD COUNT 4.69 10^6/uL (4.00-5.40); WHITE BLOOD COUNT 7.7 10^3/uL (4.0-10.0)
[2023-10-02 12:38] LABS: APPEARANCE, URINE HAZY (CLEAR); BACTERIA, URINE AUTO NEGATIVE (NEGATIVE); BILIRUBIN, URINE AUTO NEGATIVE (NEGATIVE); BLOOD, URINE BLOOD NEGATIVE (NEGATIVE); COLOR, URINE YELLOW (YELLOW); GLUCOSE, URINE (UA) AUTO NEGATIVE (NEGATIVE); KETONE, URINE AUTO NEGATIVE (NEGATIVE); LEUKOCYTE ESTERASE, URINE AUTO 1+ (NEGATIVE); NITRITE, URINE AUTO NEGATIVE (NEGATIVE); PROTEIN, URINE AUTO NEGATIVE (NEGATIVE); RBC, URINE AUTO 3 /HPF (0-3); SPECIFIC GRAVITY URINE AUTO 1.016 (1.002-1.035); SQUAMOUS EPITHELIAL CELL UR AU 2 /HPF (0-6); TRANSITIONAL EPITHELIAL AUTO 1 /HPF; UROBILINOGEN, URINE AUTO 0.2 mg/dL (0.0-2.0); WBC, URINE AUTO 11 /HPF (0-3)
[2023-10-02 12:57] LABS: BLOOD UREA NITROGEN 14 MG/DL (9-23); CALCIUM LEVEL 9.1 MG/DL (8.3-10.6); CARBON DIOXIDE LEVEL 29 MMOL/L (20-31); CHLORIDE LEVEL 103 MMOL/L (98-107); CREATININE FOR GFR 0.88 MG/DL (0.55-1.30); GLOMERULAR FILTRATION RATE > 60.0 (>45); GLUCOSE, FASTING 130 MG/DL (74-106); POTASSIUM SERUM 4.3 MMOL/L (3.5-5.1); SODIUM LEVEL 139 MMOL/L (136-145)
== END ==
LOC: M SFHCCLAY 08:35
PROVIDERS: ATTEND Physician Assistant
DX: Z01.818 Encounter for other preprocedural examination (principal); N13.30 Unspecified hydronephrosis; Z79.899 Other long term (current) drug therapy

== ENCOUNTER → 2023-10-02 | Outpatient (CLI) | payer MEDICARE | LOC: M CLY 08:48 | PROVIDERS: ATTEND Physician Assistant | DX: Z01.818 Encounter for other preprocedural examination (principal) ==

== ENCOUNTER 2023-10-11 09:53 | Day surgery (SDC) | payer MEDICARE ==
[~2023-10-11] VITALS: Ht 162.6 cm; Wt 96.3 kg
[2023-10-11] MEDS: LR 1,000 ML IV SCH (11:02)
[2023-10-11] MEDS ORDERED: KETOROLAC 60MG 2ML VIAL As Ordered ONE (12:14)
[2023-10-11] MEDS ORDERED: LIDOCAINE 2% 100MG/5ML SDV (FOR ANES.) As Ordered ONE (12:14)
[2023-10-11] MEDS ORDERED: ONDANSETRON 4MG 2ML VIAL As Ordered ONE (12:14)
[2023-10-11] MEDS ORDERED: propofoL 200 MG/20 ML VIAL As Ordered ONE (12:14)
[2023-10-11] MEDS ORDERED: fentaNYL 100 MCG/2 ML INJECTION As Ordered ONE (12:25)
[2023-10-11] MEDS: ceFAZolin SOD 2 GM in IV 1 EA IV ONE (13:00)
[2023-10-11] MEDS: ISOVUE-300 61% 100ML VIAL As Ordered ONE (14:20)
[2023-10-11] MEDS ORDERED: fentaNYL 100 MCG/2 ML INJECTION IV PRN (14:35)
[2023-10-11] MEDS ORDERED: LR 1,000 ML IV SCH (14:35)
[2023-10-11] MEDS ORDERED: ONDANSETRON 4MG 2ML VIAL IV PRN (14:35)
[2023-10-11] MEDS: oxyCODONE 5MG TAB PO PRN (14:57)
[2023-10-11] MEDS: oxyBUTYnin 5 MG TAB PO PRN (15:08)
[2023-10-11] MEDS ORDERED: PERCOCET 5MG/325MG TAB PO PRN (15:10)
[2023-10-11 15:55] VITALS: BP 160/75; TEMP 97.7; O2SAT 96
== END 2023-10-11 16:07 | disposition home or self-care (01) ==
LOC: M SDC 09:53
PROVIDERS: ATTEND Urology
DX: N13.2 Hydronephrosis with renal and ureteral calculous obstruction (principal); R32 Unspecified urinary incontinence; J45.909 Unspecified asthma, uncomplicated; G47.30 Sleep apnea, unspecified; Z79.899 Other long term (current) drug therapy; Z79.82 Long term (current) use of aspirin; Z86.73 Personal history of transient ischemic attack (TIA), and cerebral infarction without residual deficits; Z90.49 Acquired absence of other specified parts of digestive tract; Z88.8 Allergy status to other drugs, medicaments and biological substances; Z88.2 Allergy status to sulfonamides
CPT/HCPCS: 52356; 76000; 82365; C1769; C2617; J0690; J1100; J1885; J2405; J3010; Q9967

== ENCOUNTER → 2023-11-10 | Outpatient (REF) | payer MEDICARE ==
[~2023-11-10] MED LIST changes: +BACL1TAB9 PO; +ONDA-284; -ONDA8TAB8; +VITA-243 PO; +vitamin b12 PO
[2023-11-10 12:07] LABS: HEMATOCRIT 42.4 % (36.0-47.0); HEMOGLOBIN 13.7 g/dl (12.0-15.5); MEAN CORPUSCULAR HEMOGLOBIN 27.9 pg (27.0-33.0); MEAN CORPUSCULAR HGB CONC 32.3 g/dl (32.0-36.5); MEAN CORPUSCULAR VOLUME 86.4 fl (80.0-96.0); PLATELET COUNT, AUTOMATED 253 10^3/uL (150-450); RED BLOOD COUNT 4.91 10^6/uL (4.00-5.40); WHITE BLOOD COUNT 7.5 10^3/uL (4.0-10.0)
[2023-11-10 12:17] LABS: BLOOD UREA NITROGEN 18 MG/DL (9-23); CALCIUM LEVEL 9.5 MG/DL (8.3-10.6); CARBON DIOXIDE LEVEL 28 MMOL/L (20-31); CHLORIDE LEVEL 106 MMOL/L (98-107); CREATININE FOR GFR 0.97 MG/DL (0.55-1.30); GLOMERULAR FILTRATION RATE > 60.0 (>45); GLUCOSE, FASTING 115 MG/DL (74-106); POTASSIUM SERUM 4.3 MMOL/L (3.5-5.1); SODIUM LEVEL 140 MMOL/L (136-145)
== END ==
LOC: M LABSMT 08:31
PROVIDERS: ATTEND Urology
DX: Z01.818 Encounter for other preprocedural examination (principal); N13.0 Hydronephrosis with ureteropelvic junction obstruction; N39.0 Urinary tract infection, site not specified

== ENCOUNTER → 2023-11-14 | Outpatient (REF) | payer MEDICARE ==
[~2023-11-14] MED LIST changes: +COLA100C5 PO; +PERCOCET PO
[2023-11-14 12:44] LABS: APPEARANCE, URINE HAZY (CLEAR); BACTERIA, URINE AUTO NEGATIVE (NEGATIVE); BILIRUBIN, URINE AUTO NEGATIVE (NEGATIVE); BLOOD, URINE BLOOD 3+ (NEGATIVE); COLOR, URINE YELLOW (YELLOW); GLUCOSE, URINE (UA) AUTO NEGATIVE (NEGATIVE); KETONE, URINE AUTO NEGATIVE (NEGATIVE); LEUKOCYTE ESTERASE, URINE AUTO 2+ (NEGATIVE); MUCUS, URINE SMALL (NEGATIVE); NITRITE, URINE AUTO NEGATIVE (NEGATIVE); PROTEIN, URINE AUTO 2+ mg/dL (NEGATIVE); RBC, URINE AUTO TNTC /HPF (0-3); SPECIFIC GRAVITY URINE AUTO 1.017 (1.002-1.035); SQUAMOUS EPITHELIAL CELL UR AU 2 /HPF (0-6); TRANSITIONAL EPITHELIAL AUTO 1 /HPF; UROBILINOGEN, URINE AUTO 0.2 mg/dL (0.0-2.0); WBC, URINE AUTO 28 /HPF (0-3)
== END ==
LOC: M LABSMT 07:36
PROVIDERS: ATTEND Urology
DX: N39.0 Urinary tract infection, site not specified (principal)

== ENCOUNTER 2023-11-16 05:59 | Day surgery (SDC) | payer MEDICARE ==
[~2023-11-16] VITALS: Ht 162.6 cm; Wt 94.3 kg
[~2023-11-16 05:59] MED LIST changes: -COLA100C5 PO; -PERCOCET PO
[2023-11-16] MEDS ORDERED: propofoL 200 MG/20 ML VIAL As Ordered ONE (07:19)
[2023-11-16] MEDS ORDERED: fentaNYL 100 MCG/2 ML INJECTION As Ordered ONE (07:19)
[2023-11-16] MEDS ORDERED: LIDOCAINE 2% 100MG/5ML SDV (FOR ANES.) As Ordered ONE (07:19)
[2023-11-16] MEDS ORDERED: MIDAZOLAM INJ 2MG/2ML VIAL As Ordered ONE (07:19)
[2023-11-16] MEDS ORDERED: ROCURONIUM BROMIDE 50MG/5ML VIAL As Ordered ONE (07:19)
[2023-11-16] MEDS: INDOCYANINE GREEN 25MG VIAL (IC-GREEN) As Ordered ONE (07:25)
[2023-11-16] MEDS: ceFAZolin SOD 2 GM in IV 1 EA IV ONE (07:35)
[2023-11-16] MEDS ORDERED: oxyBUTYnin 5 MG TAB PO PRN (07:35)
[2023-11-16] MEDS ORDERED: ALBUTEROL 90 MCG/ACT 8GM HFA INHALER INH PRN (07:35)
[2023-11-16] MEDS ORDERED: LR 1,000 ML IV SCH ×2 (07:35→13:55)
[2023-11-16] MEDS ORDERED: FUROSEMIDE 100MG/10ML VIAL As Ordered ONE (08:06)
[2023-11-16] MEDS ORDERED: SUGAMMADEX SODIUM 500 MG/5 ML VIAL (BRIDION) As Ordered ONE (08:41)
[2023-11-16] MEDS ORDERED: ONDANSETRON 4MG 2ML VIAL As Ordered ONE (08:41)
[2023-11-16] MEDS ORDERED: ACETAMINOPHEN 1000MG 100ML IV BAG As Ordered ONE (08:41)
[2023-11-16] MEDS ORDERED: HYDROmorphone HCL 2MG/ML 1ML VIAL As Ordered ONE (08:42)
[2023-11-16] MEDS: DOCUSATE SODIUM 100MG CAPSULE PO SCH (09:00)
[2023-11-16] MEDS: ceFAZolin 2 GM/D5W 50 ML IV BAG As Ordered ONE (12:21)
[2023-11-16] MEDS ORDERED: GLYCOPYRROLATE INJ 0.2 MG/ML 2 ML VIAL As Ordered ONE (13:51)
[2023-11-16] MEDS ORDERED: oxyCODONE 5MG TAB PO PRN (13:55)
[2023-11-16] MEDS ORDERED: fentaNYL 100 MCG/2 ML INJECTION IV PRN (13:55)
[2023-11-16] MEDS ORDERED: HYDROMORPHONE HCL 0.5 MG/ 0.5 ML SYRINGE IV PRN (13:55)
[2023-11-16] MEDS ORDERED: ONDANSETRON 4MG 2ML VIAL IV PRN (13:55)
[2023-11-16] MEDS: LIDOCAINE 1% SDV 30ML VIAL As Ordered ONE (14:04)
[2023-11-16] MEDS: METOCLOPRAMIDE INJ 10MG/2ML VIAL IV PRN (14:55)
[2023-11-16 15:18] LABS: HEMATOCRIT 40.3 % (36.0-47.0); HEMOGLOBIN 13.2 g/dl (12.0-15.5); MEAN CORPUSCULAR HEMOGLOBIN 28.1 pg (27.0-33.0); MEAN CORPUSCULAR HGB CONC 32.8 g/dl (32.0-36.5); MEAN CORPUSCULAR VOLUME 85.7 fl (80.0-96.0); PLATELET COUNT, AUTOMATED 214 10^3/uL (150-450); WHITE BLOOD COUNT 13.4 10^3/uL (4.0-10.0)
[2023-11-16 15:20] VITALS: BP 132/70; TEMP 97.5; O2SAT 96
[2023-11-16] MEDS ORDERED: PERCOCET PO (15:36)
[2023-11-16] MEDS ORDERED: COLA100C5 PO (15:36)
[2023-11-16 15:49] LABS: BLOOD UREA NITROGEN 14 MG/DL (9-23); CALCIUM LEVEL 8.8 MG/DL (8.3-10.6); CARBON DIOXIDE LEVEL 27 MMOL/L (20-31); CHLORIDE LEVEL 104 MMOL/L (98-107); CREATININE FOR GFR 0.91 MG/DL (0.55-1.30); GLOMERULAR FILTRATION RATE > 60.0 (>45); GLUCOSE, FASTING 160 MG/DL (74-106); POTASSIUM SERUM 4.2 MMOL/L (3.5-5.1); SODIUM LEVEL 138 MMOL/L (136-145)
[2023-11-16 15:53] VITALS: BP 135/75; TEMP 97.3; O2SAT 95
[2023-11-16 16:18] VITALS: BP 135/77; TEMP 97.5; O2SAT 96
[2023-11-16] MEDS: PERCOCET 5MG/325MG TAB PO PRN ×2 (17:02→22:30)
[2023-11-16] MEDS: NS 1,000 ML IV SCH (17:04)
[2023-11-16] MEDS: ceFAZolin SOD 1 GM in D5W MINI-BAG PLUS 50 ML IV SCH (17:04)
[2023-11-16 17:15] VITALS: BP 133/72; TEMP 97.5; O2SAT 96
[2023-11-16 18:20] VITALS: BP 136/79; TEMP 97.7; O2SAT 96
[2023-11-16 20:01] VITALS: BP 134/78; TEMP 97.7; O2SAT 95
[2023-11-16] MEDS: PRAZOSIN 1 MG CAP PO SCH (20:01)
[2023-11-16] MEDS: ACETAMINOPHEN TAB 650MG DOSE (2X325MG) PO PRN (20:02)
[2023-11-16] MEDS: busPIRone 10 MG TAB PO SCH (20:02)
[2023-11-16] MEDS: HEPARIN SOD (PORCINE) 5000UNITS/ML 1ML VIAL/SYRINGE SC SCH (20:56)
[2023-11-17 00:21] VITALS: BP 136/80; TEMP 97.5; O2SAT 94
[2023-11-17 05:17] VITALS: BP 130/80; TEMP 97.7; O2SAT 96
[2023-11-17 07:15] LABS: HEMATOCRIT 36.5 % (36.0-47.0); HEMOGLOBIN 12.1 g/dl (12.0-15.5); MEAN CORPUSCULAR HEMOGLOBIN 28.3 pg (27.0-33.0); MEAN CORPUSCULAR HGB CONC 33.2 g/dl (32.0-36.5); MEAN CORPUSCULAR VOLUME 85.5 fl (80.0-96.0); PLATELET COUNT, AUTOMATED 203 10^3/uL (150-450); RED BLOOD COUNT 4.27 10^6/uL (4.00-5.40); WHITE BLOOD COUNT 10.6 10^3/uL (4.0-10.0)
[2023-11-17] MEDS: FLUoxetine 20MG CAP PO SCH (07:45)
[2023-11-17 07:46] LABS: BLOOD UREA NITROGEN 14 MG/DL (9-23); CALCIUM LEVEL 8.7 MG/DL (8.3-10.6); CARBON DIOXIDE LEVEL 26 MMOL/L (20-31); CHLORIDE LEVEL 104 MMOL/L (98-107); CREATININE FOR GFR 0.88 MG/DL (0.55-1.30); GLOMERULAR FILTRATION RATE > 60.0 (>45); GLUCOSE, FASTING 105 MG/DL (74-106); POTASSIUM SERUM 3.8 MMOL/L (3.5-5.1); SODIUM LEVEL 137 MMOL/L (136-145)
[2023-11-17 08:15] VITALS: BP 131/74; TEMP 97.7; O2SAT 96
[2023-11-17] MEDS ORDERED: dilTIAZem 60 MG TAB PO SCH (09:00)
== END 2023-11-17 12:00 | disposition home or self-care (01) ==
LOC: M SDC 05:59 → UNDOADMIN 05:59 → M OR 05:59 → EDSTATUS 07:30 → M MS5PR 15:10 → M OR 15:10 → M SDC 11-17 12:00 → UNDODISIN 11-17 12:00
PROVIDERS: ATTEND Urology
DX: N13.2 Hydronephrosis with renal and ureteral calculous obstruction (principal); N39.0 Urinary tract infection, site not specified; K56.50 Intestinal adhesions [bands], unspecified as to partial versus complete obstruction; N20.0 Calculus of kidney; G43.909 Migraine, unspecified, not intractable, without status migrainosus; G47.30 Sleep apnea, unspecified; F41.9 Anxiety disorder, unspecified; F32.A Depression, unspecified; Z79.51 Long term (current) use of inhaled steroids; Z79.82 Long term (current) use of aspirin; Z79.899 Other long term (current) drug therapy; Z88.1 Allergy status to other antibiotic agents; Z88.8 Allergy status to other drugs, medicaments and biological substances
CPT/HCPCS: 36415; 50544; 52332; 74018; 80048; 85027; 86850; 86900; 86901; 96365; 96366; 96372; C2617; J0131; J0665; J0690; J1100; J1170; J1940; J2250; J2405; J2765; J3010; S2900

== ENCOUNTER → 2023-11-24 | Outpatient (REF) | payer MEDICARE ==
[~2023-11-24] MED LIST changes: +COLA100C5 PO; +PERCOCET PO
[2023-11-24 13:26] LABS: APPEARANCE, URINE HAZY (CLEAR); BACTERIA, URINE AUTO NEGATIVE (NEGATIVE); BILIRUBIN, URINE AUTO NEGATIVE (NEGATIVE); BLOOD, URINE BLOOD 3+ (NEGATIVE); COLOR, URINE YELLOW (YELLOW); GLUCOSE, URINE (UA) AUTO NEGATIVE (NEGATIVE); KETONE, URINE AUTO NEGATIVE (NEGATIVE); LEUKOCYTE ESTERASE, URINE AUTO 2+ (NEGATIVE); MUCUS, URINE SMALL (NEGATIVE); NITRITE, URINE AUTO NEGATIVE (NEGATIVE); PROTEIN, URINE AUTO 3+ mg/dL (NEGATIVE); RBC, URINE AUTO TNTC /HPF (0-3); SPECIFIC GRAVITY URINE AUTO 1.018 (1.002-1.035); SQUAMOUS EPITHELIAL CELL UR AU 0 /HPF (0-6); UROBILINOGEN, URINE AUTO 0.2 mg/dL (0.0-2.0); WBC, URINE AUTO 20 /HPF (0-3)
== END ==
LOC: M SMT 12:15
PROVIDERS: ATTEND Physician Assistant
DX: Z48.816 Encounter for surgical aftercare following surgery on the genitourinary system (principal); Z79.899 Other long term (current) drug therapy

== ENCOUNTER → 2024-01-30 | Outpatient (CLI) | payer MEDICARE ==
[~2024-01-30] MED LIST changes: +ISOVUE-370 76% 100ML VIAL As Ordered ONE
== END ==
LOC: M RAD 14:15
PROVIDERS: ATTEND Urology
DX: N13.5 Crossing vessel and stricture of ureter without hydronephrosis (principal)
CPT/HCPCS: 74178; Q9967

== ENCOUNTER → 2024-08-05 | Outpatient (CLI) | payer MEDICARE ==
[~2024-08-05] MED LIST changes: -ADV500INH; +ADVA1AER10; -AMIT24CA7 PO; -GEOD40CA13 PO; -ISOVUE-370 76% 100ML VIAL As Ordered ONE; +LUBI24CA32 PO; +ZIPR40CA27 PO; -ZIPR60CA11 PO; +ZIPR60CA21 PO
== END ==
LOC: M RAD 13:29
PROVIDERS: ATTEND Urology
DX: N20.0 Calculus of kidney (principal)

== ENCOUNTER → 2024-08-08 | Outpatient (REF) | payer MEDICARE ==
[2024-08-08 18:48] LABS: ALBUMIN 3.9 G/DL (3.2-5.2); ALKALINE PHOSPHATASE 91 U/L (35-104); ALT/SGPT 25 U/L (7.0-40); AST/SGOT 16 U/L (<34); BILIRUBIN,TOTAL 0.5 MG/DL (0.3-1.2); BLOOD UREA NITROGEN 15 MG/DL (9-23); C REACTIVE PROTEIN QUANTITATIV 0.58 MG/DL (<1.0); CALCIUM LEVEL 9.4 MG/DL (8.3-10.6); CARBON DIOXIDE LEVEL 26 MMOL/L (20-31); CHLORIDE LEVEL 109 MMOL/L (98-107); CHOLESTEROL LEVEL 203 MG/DL (<200); CHOLESTEROL RISK RATIO 3.87 (<5); CREATININE FOR GFR 0.93 MG/DL (0.55-1.30); GLOMERULAR FILTRATION RATE > 60.0 (>45); GLUCOSE, FASTING 96 MG/DL (74-106); HDL CHOLESTEROL 52.4 MG/DL (>40); LDL CHOLESTEROL 134.6 MG/DL (<100); NON-HDL-C 150.6 MG/DL; POTASSIUM SERUM 4.2 MMOL/L (3.5-5.1); SODIUM LEVEL 144 MMOL/L (136-145); TOTAL PROTEIN 7.4 G/DL (5.7-8.2); TRIGLYCERIDES LEVEL 80 MG/DL (<150)
[2024-08-08 18:52] LABS: FREE T4 1.31 NG/DL (0.89-1.76); THYROID STIMULATING HORMONE 1.076 uIU/ML (0.55-4.78)
[2024-08-08 18:53] LABS: TOTAL T3 122.4 NG/DL (60.0-181.0)
[2024-08-08 19:02] LABS: BASO # 0.1 10^3/uL (0.0-0.2); BASO % 0.9 % (0.0-1.0); EOS # 0.2 10^3/uL (0.0-0.5); HEMATOCRIT 42.9 % (36.0-47.0); HEMOGLOBIN 13.6 g/dl (12.0-15.5); LYMPH # 1.9 10^3/uL (1.5-5.0); LYMPH % 24.5 % (24.0-44.0); MEAN CORPUSCULAR HEMOGLOBIN 27.5 pg (27.0-33.0); MEAN CORPUSCULAR HGB CONC 31.7 g/dl (32.0-36.5); MEAN CORPUSCULAR VOLUME 86.7 fl (80.0-96.0); MONO # 0.5 10^3/uL (0.0-0.8); MONO % 6.5 % (2.0-8.0); NEUTROPHILS % 65.8 % (36.0-66.0); PLATELET COUNT, AUTOMATED 228 10^3/uL (150-450); RED BLOOD COUNT 4.95 10^6/uL (4.00-5.40); WHITE BLOOD COUNT 7.7 10^3/uL (4.0-10.0)
[2024-08-08 19:27] LABS: ERYTHROCYTE SEDIMENTATION RATE 25 mm/hr (0-30)
[2024-08-08 20:10] LABS: HEMOGLOBIN A1c 5.6 % (4.0-6.0)
[2024-08-12 13:17] LABS: ANA SCREEN, IFA NEGATIVE (NEGATIVE)
[2024-08-13 00:14] LABS: CYCLIC CITRULLINATED PEPTIDE < 16 UNITS (<20)
== END ==
LOC: M SFHCCLAY 09:18
PROVIDERS: ATTEND Family Medicine
DX: R10.11 Right upper quadrant pain (principal); M79.10 Myalgia, unspecified site; R53.83 Other fatigue; R73.01 Impaired fasting glucose; E78.2 Mixed hyperlipidemia

== ENCOUNTER → 2024-08-26 | Outpatient (CLI) | payer MEDICARE ==
[~2024-08-26] MED LIST changes: +GASTROGRAFIN SOLUTION 30ML ONE; +ISOVUE-370 76% 100ML VIAL ONE
== END ==
LOC: M PLAIMG 09:57
PROVIDERS: ATTEND Family Medicine
DX: R13.10 Dysphagia, unspecified (principal); R10.11 Right upper quadrant pain
CPT/HCPCS: 74177; Q9963; Q9967

== ENCOUNTER → 2024-08-28 | Outpatient (CLI) | payer MEDICARE ==
[~2024-08-28] MED LIST changes: -GASTROGRAFIN SOLUTION 30ML ONE; -ISOVUE-370 76% 100ML VIAL ONE
== END ==
LOC: M PLAIMG 12:37
PROVIDERS: ATTEND Family Medicine
DX: R40.4 Transient alteration of awareness (principal); G40.909 Epilepsy, unspecified, not intractable, without status epilepticus; R40.20 Unspecified coma

== ENCOUNTER → 2025-04-08 | Outpatient (CLI) | payer MEDICARE ==
[~2025-04-08] MED LIST changes: +BARIUM SULFATE 700 MG TABLET As Ordered ONE; +E-Z-GAS II EFFERVESCENT PACKET (SODIUM BICARB./CITRIC ACID/SIMETHICONE) As Ordered ONE; +E-Z-HD 98% w/w 340 GM SUSP BTL As Ordered ONE; +E-Z-PAQUE 96% w/w SUSP 176 GM BTL As Ordered ONE; -FLOM0.4C39 PO; +PREG-35 PO; -PREG100CA PO; -PROZ20CA11 PO; +PROZ20CA12 PO; +TAMS-18 PO
== END ==
LOC: M RAD 08:00
PROVIDERS: ATTEND Internal Medicine
DX: R13.10 Dysphagia, unspecified (principal)